=== PATIENT | male | born 1950 | race Caucasian/White ===

== ENCOUNTER 2016-10-05 07:30 | Day surgery (SDC) | payer MEDICARE, OTHER, SELFPAY | END 2016-10-05 08:58 | disposition home or self-care (01) | PROVIDERS: Family Provider Family Medicine; Visit Provider Internal Medicine Gastroenterology | DX: Z12.11 Encounter for screening for malignant neoplasm of colon (principal); D12.2 Benign neoplasm of ascending colon; D12.3 Benign neoplasm of transverse colon; K64.1 Second degree hemorrhoids; Z80.0 Family history of malignant neoplasm of digestive organs | CPT/HCPCS: 45385; 96365; 96366 ==

== ENCOUNTER → 2020-10-08 11:49 | Outpatient (CLI) | payer BC, MEDICARE, SELFPAY ==
--- NOTE | 2020-10-08 | CA_ITS ---
APPROVED REPORT Exam: Pharmacologic Technologist: Lyssa Lewis Ht: 5 ft 10 in Wt: 200 lbs BSA: 2.09 m2 HR: 50 bpm BP: 169/88 mmHg Indications: CP, SOB Medical History Medications: Nadolol,,,,, Allergies: NKA Stress Test Details Test: LEXISCAN HR Resting HR: 49 bpm Max Heart Rate (APMHR): 150.665552 bpm Max HR Achieved: 77 bpm Target HR (85% APMHR): 127.823179 bpm % of APMHR: 51.33 Recovery HR: 67 bpm BP Resting BP: 169/88 mmHg Max BP: 169/88 mmHg Recovery BP: 156.0/91.0 mmHg ECG Resting ECG: NSR, NS T wave abns Clinical Exercise duration: 04:00 min Highest Stage Achieved: Exercise capacity: 1.0 METs Stress ECG Conclusion Switched from exercise to Lexiscan due to exercise tolerance. Very brief chest discomfort, SOA, malaise, and stomach discomfort at peak infusion that resolved during recovery. No arhhythmia or ectopy. No significant ST changes. Unremarkable Lexiscan stress. Images reported separately. High BP. Test Summary REST 01:51 . . 49 . 169/ 88 . . Stage 1 01:00 . . 66 . . . . Stage 2 01:00 . . 74 . 145/ 85 . . Stage 3 01:00 . . 66 . 160/ 84 . . Stage 4 01:00 . . 63 . . . Stop exercise at 04:00 RECOVERY 01:00 . . 75 . 156/ 91 . . RECOVERY 02:00 . . 67 . 152/ 89 . . RECOVERY 03:00 . . 62 . 162/ 86 . . RECOVERY 03:16 . . 70 . 162/ 86 . . Electronically signed by : Ahmet Jorge, 10/08/2020 17:58:25
--- NOTE | 2020-10-08 11:55 | NM_ITS ---
APPROVED REPORT Exam: Nuclear Stress Test Indication: chest pain..short of breath Patient Location: Outpatient Stress Tech: Lyssa Lewis [place] Tech:Gloria Dorado, LIANET, RT (R)(N) Ht: 5 ft 10 in Wt: 200 lbs HR: 50 bpm BP: 169/88 mmHg BSA: 2.09 m2 BMI: 28.6 History: chest pain..short of breath Procedure: Patient received a 0.4 mg of intravenous Lexiscan, resting heart rate 50 bpm, resting blood pressure 169/88 mmHg, with Lexiscan maximum heart rate achived was 72 bpm which is Less than 85 % of the maximum predicted heart rate and blood pressure was 145/85 mmHg. Electrocardiogram Resting electrocardiogram showed sinus rhythm, with Lexiscan there is less than 1.[address] segment depression noted from the baseline EKG. The EKG portion of the Lexiscan is nondiagnostic. Cardiac Stress and Resting SPECT Images: Cardiac Stress and Resting SPECT images were obtained using technetium 99m Myoview 32.1 mCi stress and 10.17 mCi at rest. Gated SPECT for analysis of segmental wall motion and calculation of the ejection fraction also done, prone images were also obtained. Cardiac stress and resting SPECT images show uniform myocardial activity without segmental perfusion abnormality, computer derived ejection fraction is 52% with no regional wall motion abnormality, right ventricle is normal size and contractility. Conclusion: 1. The EKG portion of the Lexiscan is nondiagnostic. 2. No scintigraphic evidence of reversible ischemia seen, computer derived ejection fraction is 52% with no regional wall motion abnormality, right ventricle is normal size and contractility. 3. Normal Lexiscan Myoview study. Electronically signed by : Ahmet Jorge, 10/08/2020 18:16:48
--- NOTE | 2020-10-08 13:30 | HMH.ITSHM ---
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 []NADOLOL PREVAGAN
== END ==
PROVIDERS: PCP Family Medicine; Visit Provider Family Medicine
DX: R06.00 Dyspnea, unspecified (principal); R07.89 Other chest pain
CPT/HCPCS: 78452; 93017; A9502; J2785

== ENCOUNTER → 2020-10-29 11:05 | Outpatient (CLI) | payer BC, MEDICARE, SELFPAY ==
--- NOTE | 2020-10-29 11:12 | XR_ITS ---
PROCEDURE: XR CHEST 2V CLINICAL HISTORY: R07.2,R53.83 COMPARISON: No exams were available for comparison FINDINGS: The cardiomediastinal silhouette and pulmonary vascularity are within normal limits. The lungs are clear without infiltrates, suspicious nodules, or pleural effusions. Degenerative changes of the visualized thoracic spine are noted. IMPRESSION: No acute findings. Dictated by: Mary Maloney 10/29/2020 12:34 Mary Maloney in [facility] 10/29/2020 12:34
--- NOTE | 2020-10-29 11:28 | ECG_ITS ---
APPROVED REPORT Exam: Resting ECG HR:49 bpm ECG Measurements Heart Rate 49 AXES RI 162 P 29 QRSd 84 QRS -25 QT 428 T -8 QTc 386 Conclusion Marked sinus bradycardia Moderate voltage criteria for LVH, may be normal variant Nonspecific T wave abnormality Abnormal ECG Electronically signed by : Johnathan Ortega, 10/31/2020 14:31:10
[2020-10-29 12:23] LABS: Basophils # 0.1 K/mm3 (0-0.2); Eosinophils # 0.5 K/mm3 (0.0-0.4); Eosinophils % 5.8 % (0.1-12.0); Hematocrit 47.3 % (42.0-52.0); Hemoglobin 16.9 g/dL (14.1-18.0); Lymphocytes # 1.6 K/mm3 (0.7-4.5); Lymphocytes % 17.4 % (10-50); Mean Corpuscular HGB Conc 35.6 g/dL (31.8-35.4); Mean Corpuscular Hemoglobin 30.3 pg (27.0-31.2); Monocytes # 0.6 K/mm3 (0.1-1.0); Monocytes % 6.4 % (1.7-9.3); Neutrophils # 6.3 K/mm3 (1.8-7.8); Neutrophils % 69.5 % (37.0-80.0); Platelet Count 249 K/mm3 (142-424); Red Blood Count 5.56 M/mm3 (4.60-6.20); Red Cell Distribution Width 13.5 % (11.5-17.5); White Blood Count 9.1 K/mm3 (4.8-10.8)
[2020-10-29 13:15] LABS: 25-OH Vitamin D, Total 33.1 ng/mL (30-100)
[2020-10-29 13:18] LABS: C-Reactive Protein 1.6 mg/L (0-4)
[2020-10-29 13:45] LABS: Thyroid Stimulating Hormone 2.02 uIU/mL (0.465-4.68)
== END ==
PROVIDERS: PCP Family Medicine; Visit Provider Family Medicine
DX: R07.2 Precordial pain (principal); R53.83 Other fatigue
CPT/HCPCS: 36415; 71046; 82306; 84443; 85025; 86140; 93005

== ENCOUNTER → 2020-11-13 10:03 | Outpatient (CLI) | payer BC, MEDICARE, SELFPAY ==
[2020-11-13 10:34] LABS: Basophils # 0.1 K/mm3 (0-0.2); Eosinophils # 0.9 K/mm3 (0.0-0.4); Eosinophils % 10.4 % (0.1-12.0); Hematocrit 45.2 % (42.0-52.0); Hemoglobin 15.8 g/dL (14.1-18.0); Lymphocytes # 1.8 K/mm3 (0.7-4.5); Lymphocytes % 21.2 % (10-50); Mean Corpuscular Hemoglobin 30.2 pg (27.0-31.2); Mean Corpuscular Volume 86.2 fl (80-94); Mean Platelet Volume 7.7 fl (7.4-10.4); Monocytes # 0.7 K/mm3 (0.1-1.0); Monocytes % 8.5 % (1.7-9.3); Neutrophils # 5.1 K/mm3 (1.8-7.8); Neutrophils % 58.9 % (37.0-80.0); Platelet Count 251 K/mm3 (142-424); Red Blood Count 5.24 M/mm3 (4.60-6.20); Red Cell Distribution Width 13.4 % (11.5-17.5); White Blood Count 8.7 K/mm3 (4.8-10.8)
[2020-11-13 11:12] LABS: Anion Gap 12.2 mEq/L (5-15); Blood Urea Nitrogen 14 mg/dl (9-20); Calcium 8.7 mg/dl (8.4-10.2); Carbon Dioxide 29 mmol/L (22.0-30.0); Chloride 104 mmol/L (98-107); Estimated Glomerular Filt Rate 96 ml/min (>60); GFR (African American) 116 ML/MIN (>60); Glucose 91 mg/dl (74-100); Potassium 4.2 mmoL/L (3.5-5.1); Sodium 141 mmol/L (136-145)
== END ==
PROVIDERS: Visit Provider Internal Medicine Cardiovascular Disease
DX: Z01.812 Encounter for preprocedural laboratory examination (principal); Z20.822 Contact with and (suspected) exposure to COVID-19; R07.9 Chest pain, unspecified; R06.00 Dyspnea, unspecified; R00.1 Bradycardia, unspecified; R94.31 Abnormal electrocardiogram [ECG] [EKG]
CPT/HCPCS: 36415; 80048; 85025; U0003

== ENCOUNTER 2020-11-15 09:19 | Day surgery (SDC) | payer BC, MEDICARE, SELFPAY ==
[2020-11-15] VITALS (12 sets, daily range): BP systolic 110–153; BP diastolic 53–84; PULSE 44–59; RESP 13–20; TEMP 36.6; O2SAT 18–98; BMI 28.4
--- NOTE | 2020-11-15 07:15 | IR_ITS ---
APPROVED REPORT Patient Location: Outpatient Physicist Acoustics: JOURDAN Willis RT (R) PROCEDURES Left heart catheterization Left ventriculogram Selective coronary angiogram INDICATION Typical angina pectoris Informed consent was obtained prior to the procedure. COMPLICATIONS NONE Estimated Blood Loss: LESS THAN 10 ML TECHNIQUE One percent lidocaine used to anesthetize the right anterior aspect of the wrist. The right radial artery was accessed via the Seldinger technique. A 6 Georgian sheath was placed in the right radial artery. 2.5 mg of verapamil, 800 mcg of nitroglycerin, 1mg Lidocaine and 5000 U Heparin were given through the arterial sheath. The trap catheter was also used to perform left heart catheterization, left ventriculogram and selective coronary angiogram. At the end of the procedure the sheath was removed good hemostasis was achieved using Traclet band, patient was transferred to the postop holding area in stable condition. ANGIOGRAPHIC RESULTS The left main artery Has a distal concentric 70 to 80% stenosis The left anterior descending artery Has an ostial 70 to 80% stenosis with diffuse mid vessel 40 to 50% stenoses The circumflex artery Is dominant and has an ostial 80% stenosis. The remaining vessel is large-caliber with mild luminal irregularities The right coronary artery Is probably codominant and has mid vessel 40 to 50% stenoses with distal 10% stenoses The LORA ventriculogram reveals 65% The left ventricular end-diastolic pressure 10 mmHg IMPRESSION Severe coronary artery disease as described above Normal ejection fraction Normal left ventricular and SI pressure PLAN 1. Patient will be referred for coronary bypass surgery in [place] Electronically signed by : Dallas Daniels MD 11/15/2020 12:16:47
== END 2020-11-15 14:47 | disposition home or self-care (01) ==
LOC: CATHLAB 09:21
PROVIDERS: PCP Family Medicine; Visit Provider Internal Medicine
DX: R07.9 Chest pain, unspecified (principal); R94.31 Abnormal electrocardiogram [ECG] [EKG]; I25.118 Atherosclerotic heart disease of native coronary artery with other forms of angina pectoris; G43.909 Migraine, unspecified, not intractable, without status migrainosus; Z79.899 Other long term (current) drug therapy
CPT/HCPCS: 93458; 99152; C1725; C1769; J1644; Q9967

== ENCOUNTER 2020-11-23 20:08 | Emergency (ER) | payer BC, MEDICARE, SELFPAY ==
--- NOTE | 2020-11-23 20:07 | ECG_ITS ---
APPROVED REPORT Exam: Resting ECG HR:52 bpm ECG Measurements Heart Rate 52 AXES MD 152 P 52 QRSd 82 QRS -28 QT 420 T 26 QTc 390 Conclusion Sinus bradycardia with sinus arrhythmia Otherwise normal ECG Electronically signed by : Johnathan Ortega MD 11/24/2020 08:59:10
[2020-11-23 20:09] VITALS: BP 164/81; PULSE 54; RESP 18; TEMP 36.9; O2SAT 98; BMI 29.2
[2020-11-23 20:10] VITALS: BMI 29.2
--- NOTE | 2020-11-23 20:10 | XR_ITS ---
PROCEDURE INFORMATION: Exam: XR Chest Exam date and time: 11/23/2020 8:10 PM Age: 70 years old Clinical indication: Chest pressure; Patient HX: SOB chest pain; Additional info: Shortness of air chestpain TECHNIQUE: Imaging protocol: XR of the chest. Views: 2 views. COMPARISON: CR XR CHEST 2V 10/29/2020 11:16 AM FINDINGS: Lungs: Unremarkable. No consolidation. Pleural spaces: Unremarkable. No pleural effusion. No pneumothorax. Heart/Mediastinum: Unremarkable. No cardiomegaly. Bones/joints: Unremarkable. IMPRESSION: No acute findings.
[2020-11-23 20:28] LABS: Basophils # 0.1 K/mm3 (0-0.2); Basophils % 0.8 % (0.1-2.0); Eosinophils # 0.5 K/mm3 (0.0-0.4); Eosinophils % 5.9 % (0.1-12.0); Hematocrit 44.7 % (42.0-52.0); Hemoglobin 15.2 g/dL (14.1-18.0); Lymphocytes # 1.9 K/mm3 (0.7-4.5); Mean Corpuscular HGB Conc 34.1 g/dL (31.8-35.4); Mean Corpuscular Hemoglobin 29.1 pg (27.0-31.2); Mean Corpuscular Volume 85.2 fl (80-94); Mean Platelet Volume 8.1 fl (7.4-10.4); Monocytes # 0.6 K/mm3 (0.1-1.0); Monocytes % 8.3 % (1.7-9.3); Neutrophils # 4.6 K/mm3 (1.8-7.8); Platelet Count 272 K/mm3 (142-424); Red Blood Count 5.24 M/mm3 (4.60-6.20); Red Cell Distribution Width 13.4 % (11.5-17.5); White Blood Count 7.7 K/mm3 (4.8-10.8)
[2020-11-23 20:40] LABS: Alanine Aminotransferase 38 U/L (12-78); Albumin Level 4.1 g/dl (3.5-5.0); Alkaline Phosphatase 75 U/L (38-126); Anion Gap 12.3 mEq/L (5-15); Aspartate Amino Transferase 43 U/L (17-59); Bilirubin,Direct 0.4 mg/dl (0.0-0.4); Bilirubin,Indirect 0.5 mg/dL (0.0-0.9); Bilirubin,Total 0.9 mg/dl (0.2-1.3); Bilirubin,Unconjugated 0.5 mg/dL (0.0-1.1); Blood Urea Nitrogen 14 mg/dl (9-20); Calcium 8.6 mg/dl (8.4-10.2); Carbon Dioxide 30 mmol/L (22.0-30.0); Chloride 104 mmol/L (98-107); Creatinine Clearance Estimated 87 mL/min (50-200); Estimated Glomerular Filt Rate 83 ml/min (>60); GFR (African American) 101 ML/MIN (>60); Glucose 97 mg/dl (74-100); Potassium 4.3 mmoL/L (3.5-5.1); Sodium 142 mmol/L (136-145); Total Protein,Serum 6.9 g/dl (6.3-8.2)
[2020-11-23 20:53] LABS: NT Pro Brain Natriuretic Pep. 95.3 pg/mL (0-125)
[2020-11-23 20:57] LABS: T4 (Thyroxine) 8.4 ug/dl (5.53-11.0)
[2020-11-23 20:58] LABS: Troponin I < 0.01 ng/ml (0.00-0.034)
[2020-11-23 21:00] VITALS: BP 125/64; PULSE 52; RESP 16; O2SAT 97
--- NOTE | 2020-11-23 21:00 | HMH.EDCP ---
ED Disposition Clinical Impression: Unstable angina Coronary artery disease Qualifiers: Coronary Disease-Associated Artery/Lesion type: hopi artery Un[place] vs. transplanted heart: hopi heart Associated angina: with unstable angina Qualified Code(s): I25.110 - Atherosclerotic heart disease of hopi coronary artery with unstable angina pectoris Disposition: Admitted as Observation Condition on Discharge: Good - Critical Care Critical Care Time: No Attestation: On 11/23/20, the high probability of a clinically significant, sudden or life threatening deterioration of the following system(s) required my full and direct attention, intervention and personal management. The time I documented below is in addition to time spent performing reported procedures but includes the following listed in this critical care notation. Medical Decision Making - Medical Records Medical records reviewed: Yes: I reviewed the patient's medical records. - Mac Inquiry Pt receiving controlled substance: No Vital Signs: 11/23/20 20:09 Temperature 98.4 F Temperature Source Oral Pulse Rate [Right Radial] 54 L Respiratory Rate 18 Blood Pressure [Right Arm] 164/81 H Blood Pressure Mean [Right Arm] 108 Blood Pressure Source [Right Arm] Automatic Cuff Blood Pressure Position [Right Arm] Sitting 02 Sat by Pulse Oximetry 98 Oxygen Delivery Method Room Air - Lab Data Lab results reviewed: Yes: I reviewed the patient's lab results. Lab Results 11/23/20 20:22: WBC 7.7, RBC 5.24, Hgb 15.2, Hct 44.7, MCV 85.2, MCH 29.1, MCHC 34.1, RDW 13.4, Plt Count 272, MPV 8.1, Neut % (Auto) 60.0, Lymph % (Auto) 25.0, [place] % (Auto) 8.3, Eos % (Auto) 5.9, Baso % (Auto) 0.8, Neut # (Auto) 4.6, Lymph # (Auto) 1.9, [place] # (Auto) 0.6, Eos # (Auto) 0.5 H, Baso # (Auto) 0.1 11/23/20 20:22: Sodium 142, Potassium 4.3, Chloride 104, Carbon Dioxide 30, Anion Gap 12.3, BUN 14, Creatinine 0.90, Estimated Creat Clear 87, Estimated GFR 83, Est GFR ( Amer) 101, Glucose 97, Calcium 8.6, Total Bilirubin 0.9, Direct Bilirubin 0.4, Conjugated Bilirubin 0.0, Indirect Bilirubin 0.5, Unconjugated Bilirubin 0.5, AST 43, ALT 38, Alkaline Phosphatase 75, Troponin I < 0.01, NT-Pro-B Natriuret Pep 95.3, Total Protein 6.9, Albumin 4.1, TSH 2.25, Thyroxine (T4) 8.4 Result diagrams: 11/23/20 20:22 11/23/20 20:22 Orders (Tests/Meds): ED MEDICATIONS Generic Name Dose Route Start Last Admin Trade Name Freq PRN Reason Stop Dose Admin Sodium Chloride 1,000 mls @ 999 mls/hr 11/23/20 20:45 11/23/20 20:25 Sod Chlor 0.9% 1000ml Bag IV 11/23/20 21:45 999 mls/hr .Q1H1M ENOC Administration Discontinued Medications Generic Name Dose Route Start Last Admin Trade Name Freq PRN Reason Stop Dose Admin Aspirin 324 mg 11/23/20 20:38 11/23/20 20:10 Aspirin 81mg Chewable Tablet PO 11/23/20 20:39 243 mg ONCE ONE Administration Nitroglycerin 1 gm 11/23/20 20:38 11/23/20 20:10 Nitroglycerin 1 Gm Ointment TD 11/23/20 20:39 1 gm ONCE ONE Administration ORDERS Category Date Time Status Rapid PCR Covid and Flu A/B Stat Lab 11/23/20 21:46 Received Troponin I Q3H Lab 11/23/20 23:15 Ordered Troponin I Q3H Lab 11/24/20 02:15 Ordered - Radiology Data #1 Image(s): Chest Image Reviewed: Yes I reviewed the patient's radiology image Preliminary Findings: Abnormal - ECG Data Tracing #1 Normal Sinus Rhythm: Yes Ischemic changes: non-specific ST-T wave changes - Physician Consults Physician Consulted: ivy Reason -: Admission Additional Consult: edgar Reason -: Pt condition Medical Decision Narrative: will admit for unstable angina and will try to transfer pt in am Chest Pain HPI - General Chief Complaint: Chest Pain Stated Complaint: cp Time Seen by Provider: 11/23/20 20:15 Mode of Arrival: Ambulatory Source of Information: Patient, Relative, Medical Record Limitations: No Limitations Description of Symptom
[2020-11-23 21:11] LABS: Thyroid Stimulating Hormone 2.25 uIU/mL (0.465-4.68)
--- NOTE | 2020-11-23 21:24 | PC.NURSE ---
Patricia Daniels at this time.
[2020-11-23 21:30] VITALS: BP 108/57; PULSE 56; O2SAT 95
[2020-11-23 21:56] LABS: Coronavirus 19, PCR Not Detected (NotDetected); Influenza A, PCR Not Detected (NotDetected); Influenza B, PCR Not Detected (NotDetected)
[2020-11-23 22:00] VITALS: BP 112/61; PULSE 60; O2SAT 95
--- NOTE | 2020-11-23 22:38 | PC.NURSE ---
tx center called and informed of tx to [facility]. Pt will be admitted to [facility] to 8th floor, [place] [address], [address].
--- NOTE | 2020-11-23 22:49 | PC.NURSE ---
Attempted to call report and says RN is with a pt and they will call back
--- NOTE | 2020-11-23 23:04 | PC.NURSE ---
Report called to LILIANA Rodriguez at at this time
[2020-11-23 23:05] VITALS: BP 119/72; PULSE 54; RESP 16; TEMP 36.7; O2SAT 97
== END 2020-11-23 23:08 | disposition short-term general hospital (02) ==
LOC: ER 20:23 → 2ND 21:52 → ER 22:45
PROVIDERS: Emergency Provider Emergency Medicine; PCP Family Medicine
DX: I20.0 Unstable angina (principal); I25.10 Atherosclerotic heart disease of native coronary artery without angina pectoris; I10 Essential (primary) hypertension; E78.5 Hyperlipidemia, unspecified; Z11.52 Encounter for screening for COVID-19
CPT/HCPCS: 71046; 80048; 80076; 83880; 84436; 84443; 84484; 85025; 93005; 96365; 99284; U0003

== ENCOUNTER 2021-01-29 15:25 | Outpatient (RCR) | payer BC, MEDICARE, SELFPAY | END 2021-04-02 15:30 | disposition home or self-care (01) | LOC: PT 15:25 | PROVIDERS: Visit Provider Thoracic Surgery (Cardiothoracic Vascular Surgery) | DX: I25.110 Atherosclerotic heart disease of native coronary artery with unstable angina pectoris (principal); Z95.1 Presence of aortocoronary bypass graft | CPT/HCPCS: 93798 ==

== ENCOUNTER → 2021-02-24 13:37 | Outpatient (CLI) | payer BC, MEDICARE, SELFPAY ==
--- NOTE | 2021-02-24 13:38 | CA_ITS ---
APPROVED REPORT EXAM: Comprehensive 2D, Doppler, and color-flow Echocardiogram Pharmacology Professor: RAY Matthew, RVS Ht: 5 ft 10 in Wt: 197lbs BSA: 2.07 HR: 48 bpm BP: 130/46 mmHg Rhythm: Bradycardia Indications: CAD 2moths post CABG x2, Bradycardis, Dizziness 2D Dimensions Left Atrium 3.63 cm M: 3.0 - 4.0 LA Volume 54.30 mL LVOT 2.09 cm (M/F) 1.5-2.5 LA Volume Index 26.23 mL/m2 (M/F) 16-34 M-Mode Dimensions RVDd 4.41 cm (0.9-2.6) LA Diam 4.24 cm (1.9-4.0) LVDd 5.65 cm (3.5-5.7) Ao Diam 3.27 cm (2.0-3.7) LVDs 3.84 cm (3.5-5.7) IVSd 1.00 cm (0.6-1.1) PWd 0.88 cm (0.6-1.1) EF (Teich) 57.10% EPSs 1.29 cm FS 30.30% EDV (Teich) 148.00 mL TAPSE 1.70 (<1.7) ESV (Teich) 63.50 mL LV Diastology E Decel Time 190.00 (160-240 msec) E/A Ratio 1.80 MED E' 7.00 (< 7 cm/sec) MED A' 8.90 cm/s E'/MED E' Ratio 14.30 (>14) LAT E' 9.50 (<10 cm/sec) LAT A' 11.20 cm/s E/LAT E' Ratio 10.54 (>14) Aortic Valve LVOT Max 101.00 (70-110 cm/s) LVOT VTI 23.46 cm AoV Peak Avtar. 159.00 (50-130 cm/s) AO Peak GR. 10.10 mmHg AO Mean GR. 5.10 (<5 mmHg) AO VTI 36.95 (18-25 cm) RAKESH (VTI) 2.18 (2.5-4.5 cm2) Mitral Valve MV A Velocity 56.00 (40-130 cm/s) E/A Ratio 1.80 MV Decel. Time 190.00 (160-240 ms) Pulmonary Valve PV Peak Velocity 98.00 (50-150 cm/s) Tricuspid Valve TR P. Velocity 223.00 cm/s RAP Estimate 10.00 mmHg RVSP 29.90 mmHg Left Ventricle Left atrium is mildly enlarged, left ventricle is normal size, mild concentric left ventricular hypertrophy, diastolic parameters are inconclusive. Right Ventricle Right atrium right ventricle mildly enlarged with normal contractility. Aortic Valve Aortic valve is minimally thickened and fibrosed, there is no aortic stenosis or aortic insufficiency. Mitral Valve Mitral valve is grossly normal, there is trace mitral regurgitation. Tricuspid Valve Tricuspid valve grossly normal, there is trace tricuspid regurgitation, tricuspid regurgitation jet velocity is inadequate for calculation of the right ventricular systolic pressure. Pulmonic Valve Pulmonic valve is poorly visualized. Great Vessels Aortic root is normal size. Inferior vena cava is poorly visualized. Pericardium No significant pericardial effusion noted. Conclusion 1. Mild biatrial enlargement, normal left ventricular size, mild concentric left ventricular hypertrophy, visually estimated ejection fraction 55% with no regional wall motion abnormality, diastolic parameters are inconclusive. There is abnormal septal motion. 2. Trace mitral and tricuspid regurgitation. 3. No significant pericardial effusion 4. Inferior vena cava is poorly visualized. Electronically signed by : Ahmet Jorge MD 02/24/2021 20:56:30
== END ==
PROVIDERS: PCP Family Medicine; Visit Provider Nurse Practitioner Family
DX: R06.02 Shortness of breath (principal); R00.1 Bradycardia, unspecified; I20.9 Angina pectoris, unspecified; I10 Essential (primary) hypertension; E78.5 Hyperlipidemia, unspecified; R94.31 Abnormal electrocardiogram [ECG] [EKG]
CPT/HCPCS: 93306

== ENCOUNTER → 2021-05-26 08:20 | Outpatient (CLI) | payer BC, MEDICARE, SELFPAY ==
--- NOTE | 2021-05-26 08:20 | MR_ITS ---
FINAL REPORT CLINICAL HISTORY: hallucinations. SINCE OPEN HEART SURGERY IN NOV 30 BEEN HAVING HALLUCINATIONS.HAS NOT HAD A HALLUCINATION X1WK. DIZZINESS. PRIOR CT 05-30-15 FINDINGS: Multiplanar MR imaging of the brain was performed without contrast. There is no evidence of intracranial hemorrhage or mass. The ventricular size is normal. There is no evidence of shift of the midline structures. No abnormal extra-axial fluid collection is identified. The posterior fossa and brainstem have an unremarkable appearance. No area of abnormal restricted diffusion is identified. Normal major vessel vascular flow voids are seen. There is mild mucosal thickening in the sinuses. IMPRESSION: No acute intracranial process. Reviewed, Interpreted and Dictated by Wild Briones III, MD Transcribed by Ambrocio Leon Authenticated by Wild Briones III, MD on 05/26/2021 11:07:57 AM [facility]
== END ==
PROVIDERS: PCP Family Medicine; Visit Provider Specialist
DX: F02.80 Dementia in other diseases classified elsewhere, unspecified severity, without behavioral disturbance, psychotic disturbance, mood disturbance, and anxiety (principal); G31.83 Neurocognitive disorder with Lewy bodies; G47.52 REM sleep behavior disorder; G93.40 Encephalopathy, unspecified; R44.3 Hallucinations, unspecified
CPT/HCPCS: 70551; 94762; 95816

== ENCOUNTER → 2021-05-29 08:08 | Outpatient (CLI) | payer BC, MEDICARE, SELFPAY ==
[2021-05-29 08:38] LABS: Basophils # 0.1 K/mm3 (0-0.2); Eosinophils # 0.6 K/mm3 (0.0-0.4); Eosinophils % 7.7 % (0.1-12.0); Hematocrit 46.7 % (42.0-52.0); Hemoglobin 15.8 g/dL (14.1-18.0); Lymphocytes # 1.7 K/mm3 (0.7-4.5); Lymphocytes % 23.3 % (10-50); Mean Corpuscular HGB Conc 33.9 g/dL (31.8-35.4); Mean Corpuscular Hemoglobin 29.3 pg (27.0-31.2); Mean Corpuscular Volume 86.6 fl (80-94); Mean Platelet Volume 7.7 fl (7.4-10.4); Monocytes # 0.6 K/mm3 (0.1-1.0); Monocytes % 7.9 % (1.7-9.3); Neutrophils # 4.4 K/mm3 (1.8-7.8); Neutrophils % 60.1 % (37.0-80.0); Platelet Count 270 K/mm3 (142-424); Red Blood Count 5.39 M/mm3 (4.60-6.20); Red Cell Distribution Width 13.1 % (11.5-17.5); White Blood Count 7.3 K/mm3 (4.8-10.8)
[2021-05-29 09:56] LABS: Alanine Aminotransferase 25 U/L (12-78); Albumin Level 4.1 g/dl (3.5-5.0); Albumin/Globulin Ratio 1.8 (1.1-1.8); Alkaline Phosphatase 65 U/L (38-126); Anion Gap 9.5 mEq/L (5-15); Aspartate Amino Transferase 38 U/L (17-59); Bilirubin,Total 0.8 mg/dl (0.2-1.3); Blood Urea Nitrogen 10 mg/dl (9-20); Calcium 8.9 mg/dl (8.4-10.2); Carbon Dioxide 30 mmol/L (22.0-30.0); Chloride 106 mmol/L (98-107); Estimated Glomerular Filt Rate 83 ml/min (>60); GFR (African American) 101 ML/MIN (>60); Globulin 2.3 g/dL (1.3-3.2); Glucose 101 mg/dl (74-100); Potassium 4.5 mmoL/L (3.5-5.1); Sodium 141 mmol/L (136-145); Total Protein,Serum 6.4 g/dl (6.3-8.2)
[2021-05-29 10:13] LABS: Erythrocyte Sedimentation Rate 33 mm/hr (0-20)
[2021-05-29 13:38] LABS: Folate 6.89 ng/mL; Vitamin B12 375 pg/mL (239-931)
[2021-05-30 10:39] LABS: Rapid Plasma Reagin Ab Titer Non Reactive (NonRea<1:1)
[2021-07-13 20:44] LABS: Antinuclear Antibodies (ANA) Negative
== END ==
PROVIDERS: PCP Family Medicine; Visit Provider Specialist
DX: G93.40 Encephalopathy, unspecified (principal); R44.3 Hallucinations, unspecified; R41.3 Other amnesia
CPT/HCPCS: 36415; 80053; 82607; 82746; 85025; 85651; 86038; 86225; 86235; 86592

== ENCOUNTER 2021-12-03 12:25 | Emergency (ER) | payer BC, MEDICARE, SELFPAY ==
[2021-12-03 13:28] VITALS: BP 125/84; PULSE 55; RESP 17; TEMP 37; O2SAT 100; BMI 28.7
--- NOTE | 2021-12-03 13:31 | XR_ITS ---
FINAL REPORT CLINICAL HISTORY: popped when throwing salt block FINDINGS: RIGHT ELBOW Three views of the right elbow were obtained. There is no acute fracture or dislocation. There are mild hypertrophic changes at the medial margin. The soft tissues are unremarkable. IMPRESSION: Mild hypertrophic changes of osteoarthritis. No acute bony abnormality. Reviewed, Interpreted and Dictated by Kwaku Wlaker MD Transcribed by Iliana Lima Authenticated and [facility]
--- NOTE | 2021-12-03 13:31 | XR_ITS ---
FINAL REPORT CLINICAL HISTORY: popped when throwing salt block FINDINGS: RIGHT FOREARM 2 views of the right forearm were obtained. There is no acute fracture or dislocation. The joints are intact. There are no soft tissue abnormalities. IMPRESSION: No acute process. Reviewed, Interpreted and Dictated by Kwaku Walker MD Transcribed by Iliana Lima Authenticated and [facility]
--- NOTE | 2021-12-03 13:37 | PC.NURSE ---
IV established and blood sent to the lab
--- NOTE | 2021-12-03 13:38 | PC.NURSE ---
pt to xr
--- NOTE | 2021-12-03 13:43 | PC.NURSE ---
pt back from xr
[2021-12-03 13:49] LABS: Alanine Aminotransferase 36 U/L (12-78); Albumin Level 4.3 g/dl (3.5-5.0); Albumin/Globulin Ratio 1.4 (1.1-1.8); Alkaline Phosphatase 113 U/L (38-126); Anion Gap 11.2 mEq/L (5-15); Aspartate Amino Transferase 47 U/L (17-59); Bilirubin,Total 0.6 mg/dl (0.2-1.3); Blood Urea Nitrogen 11 mg/dl (9-20); Calcium 9.2 mg/dl (8.4-10.2); Carbon Dioxide 27 mmol/L (22.0-30.0); Chloride 107 mmol/L (98-107); Creatinine Clearance Estimated 87 mL/min (50-200); Estimated Glomerular Filt Rate 95 ml/min (>60); GFR (African American) 115 ML/MIN (>60); Glucose 113 mg/dl (74-100); Potassium 4.2 mmoL/L (3.5-5.1); Sodium 141 mmol/L (136-145); Total Protein,Serum 7.3 g/dl (6.3-8.2)
[2021-12-03 14:04] LABS: Basophils # 0.2 K/mm3 (0-0.2); Basophils % 1.4 % (0.1-2.0); Eosinophils # 0.3 K/mm3 (0.0-0.4); Eosinophils % 2.2 % (0.1-12.0); Hematocrit 49.6 % (42.0-52.0); Hemoglobin 16.3 g/dL (14.1-18.0); Lymphocytes # 1.1 K/mm3 (0.7-4.5); Lymphocytes % 8.9 % (10-50); Mean Corpuscular HGB Conc 32.9 g/dL (31.8-35.4); Mean Corpuscular Hemoglobin 29.7 pg (27.0-31.2); Mean Corpuscular Volume 90.3 fl (80-94); Mean Platelet Volume 8.2 fl (7.4-10.4); Monocytes # 0.5 K/mm3 (0.1-1.0); Monocytes % 4.5 % (1.7-9.3); Neutrophils # 10.1 K/mm3 (1.8-7.8); Neutrophils % 83.1 % (37.0-80.0); Platelet Count 316 K/mm3 (142-424); Red Blood Count 5.49 M/mm3 (4.60-6.20); Red Cell Distribution Width 13.3 % (11.5-17.5); White Blood Count 12.2 K/mm3 (4.8-10.8)
--- NOTE | 2021-12-03 17:10 | HMH.EDGENADL ---
Discharge Plan Disposition Patient Disposition: Home, Self-Care Condition: Good Chief Complaint: Extremity Injury, Upper Prescriptions Prescriptions: New hydrocodone-acetaminophen 2.5-325 mg tablet 1 tab PO Q6H PRN (Reason: pain) Qty: 10 0RF hydrocodone-acetaminophen 5-325 mg tablet 1 tab PO Q6H PRN (Reason: Pain) Qty: 10 0RF No Action Centrum Adult 50 Fresh-Fruity 120 mcg tablet,chewable 1 tab PO DAILY rosuvastatin 20 mg tablet 20 mg PO DAILY Qty: 90 3RF aspirin 81 MG tablet,delayed release (DR/EC) 81 mg PO DAILY Referrals Referrals: Hunter Pineda JR, MD [Physician] - Enter time for follow up Martell Thomas MD [Primary Care Provider] - Enter time for follow up Activity Restrictions/Add. Instructions Additional Instructions/Restrictions: Jason wrap and sling. Ice 20 minutes 4 times a day. [place] as needed for pain. Follow-up with orthopedics, Dr. Pineda, call tomorrow to make appointment. You should be seen within 1 week. Additional instructions for CONTROLLED SUBSTANCES: You have been prescribed a medication that is a controlled substance. Controlled substances include pain medications known as opiates and sedative nerve medications known as benzodiazepines. Tramadol, fioricet, and gabapentin are also controlled substances. Some common opiates include: Codeine (such as Tylenol #3) Hydrocodone (Vicodin, Lortab, Lorcet, [place]) Oxycodone (Percocet, Percodan, Oxycodone, Oxy IR) Some common benzodiazepines include: Diazepam (Valium) Lorazepam (Ativan) Alprazolam (Xanax) Clonazepam (Klonopin) Oxazepam (Serax) All of these controlled substances are highly addictive and frequently abused. Misuse can and frequently does lead to addiction as well as overdose and . Medication should be stored in a locked cabinet or other secure storage unit. Do not store the medication in a motor vehicle. Short term supplies, 3 days or less, are prescribed because of the highly addictive nature of the medication. Any of the controlled substance medication NOT taken should be disposed of properly and NOT SAVED. The recommended method of disposing of unused medications is: Place the medicines in a sealable plastic bag. If the medicine is a solid, crush it or add water to dissolve it. Add something undesirable (cat litter, coffee grounds, etc.) Dispose of sealed bag in household trash Do not flush or pour unused medicines down a sink or drain. Controlled substances should not be shared, given away or sold. Because of the addictive nature and frequent abuse, these medications are sometimes stolen. These medications should be kept in a safe place where they cannot be stolen. Do not keep them in your car or purse. Lost or stolen prescriptions for controlled substances WILL NOT BE REFILLED in this emergency department, regardless of whether a police report was filed. Clinical Impressions Clinical Impression: Injury of elbow, right Discharge ED Provider: Manolo Cyr General Adult HPI General Chief complaint: Extremity Injury, Upper Stated complaint: rt arm injury 12/03/21 Time Seen by Provider: 12/03/21 17:10 Mode of Arrival: Ambulatory Limitations: No Limitations Description of Symptoms (Recalled from ER Triage Doc. by RN): Pt c/o pain in rt elbow/forearm after tossing a salt block over the fence to his horses. Pt states that he heard a pop . Advises that he become diaphoretic and blacked out as soon as the pop ocurred. History of Present Illness HPI narrative: Patient states that he was tossing a 50 pound salt block over a fence this morning at about 1030 or 11 AM. He felt a pop in the antecubital fossa towards the medial side with sudden severe pain causing him to sweat and blacked out. Since then he has taken Tylenol with some mild relief. He still has severe pain in that same area worsen whenever he pronates and supinates his forearm. No numbness of the
--- NOTE | 2021-12-03 17:38 | PC.NURSE ---
ER doctor advised that pt. needed an yazan wrap for elbow and a shoulder immobilizer for the injured right arm. wrapped yazan bandage on elbow and applied the shoulder immobilizer.
[2021-12-03 17:48] VITALS: BP 137/70; PULSE 55; RESP 16; TEMP 37; O2SAT 98
== END 2021-12-03 17:48 | disposition home or self-care (01) ==
PROVIDERS: Emergency Provider Emergency Medicine; PCP Family Medicine
DX: S49.91XA Unspecified injury of right shoulder and upper arm, initial encounter (principal); X50.1XXA Overexertion from prolonged static or awkward postures, initial encounter
CPT/HCPCS: 73080; 73090; 80053; 85025; 99283

== ENCOUNTER → 2021-12-11 11:23 | Outpatient (CLI) | payer BC, MEDICARE, SELFPAY ==
--- NOTE | 2021-12-11 14:19 | MR_ITS ---
FINAL REPORT CLINICAL HISTORY: bicep tear BICEP TEAR PATIENT COULDNT FINISH SCAN DUE TO BEING CLAUSTROPHOBIC REQUESTED TO QUIT SCAN TOLD PATIENT TO CALL DOCTORS OFFICE AND GET RESCHDULED BUT IS REQUESTING WHAT IMAGES WE DO HAVE LIMITED STUDY DUE TO PATIENT BEING CLAUSTROPHOBIC FINDINGS: Multiplanar MR imaging of the right upper arm was obtained with sagittal T1 and T2 weighted images only. Exam is very limited. Patient was unable to tolerate additional imaging. No fracture or bone marrow edema is identified. There is a small cyst or enchondroma in the humeral head. There is a focal full-thickness rotator cuff tear. There is edema or hemorrhage in the antecubital fossa surrounding the distal biceps tendon. The distal biceps tendon cannot be accurately evaluated but there is probably a partial tear. There is a small elbow joint effusion. The long head of the biceps tendon is not well seen of uncertain significance. IMPRESSION: Very limited exam. Focal full-thickness rotator cuff tear. Dedicated shoulder MRI may be helpful. Probable partial tear of the distal biceps tendon. Dedicated elbow MRI may be helpful. Long head of the biceps tendon is not well seen of uncertain significance. Reviewed, Interpreted and Dictated by Wild Briones III, MD Transcribed by Tanisha Hurley Authenticated and [facility]
== END ==
PROVIDERS: PCP Family Medicine; Visit Provider Orthopaedic Surgery
DX: S46.211A Strain of muscle, fascia and tendon of other parts of biceps, right arm, initial encounter (principal)
CPT/HCPCS: 73218

== ENCOUNTER → 2022-02-03 11:02 | Outpatient (CLI) | payer BC, MEDICARE, SELFPAY ==
[2022-02-03 11:26] LABS: Basophils # 0.1 K/mm3 (0-0.2); Basophils % 0.8 % (0.1-2.0); Eosinophils # 0.3 K/mm3 (0.0-0.4); Eosinophils % 4.2 % (0.1-12.0); Hematocrit 46.3 % (42.0-52.0); Hemoglobin 15.7 g/dL (14.1-18.0); Lymphocytes # 1.4 K/mm3 (0.7-4.5); Lymphocytes % 17.4 % (10-50); Mean Corpuscular HGB Conc 33.8 g/dL (31.8-35.4); Mean Corpuscular Hemoglobin 30.4 pg (27.0-31.2); Mean Corpuscular Volume 89.7 fl (80-94); Mean Platelet Volume 8.2 fl (7.4-10.4); Monocytes # 0.5 K/mm3 (0.1-1.0); Monocytes % 6.3 % (1.7-9.3); Neutrophils # 5.7 K/mm3 (1.8-7.8); Neutrophils % 71.3 % (37.0-80.0); Platelet Count 269 K/mm3 (142-424); Red Blood Count 5.16 M/mm3 (4.60-6.20); Red Cell Distribution Width 13.2 % (11.5-17.5)
[2022-02-03 12:04] LABS: Chloride 105 mmol/L (98-107); Potassium 4.3 mmoL/L (3.5-5.1); Sodium 141 mmol/L (136-145)
[2022-02-03 12:06] LABS: Blood Urea Nitrogen 13 mg/dl (9-20); Estimated Glomerular Filt Rate 83 ml/min (>60); GFR (African American) 101 ML/MIN (>60)
[2022-02-03 12:07] LABS: Alanine Aminotransferase 29 U/L (12-78); Albumin Level 4.1 g/dl (3.5-5.0); Alkaline Phosphatase 89 U/L (38-126); Anion Gap 12.3 mEq/L (5-15); Aspartate Amino Transferase 42 U/L (17-59); Bilirubin,Indirect 0.6 mg/dL (0.0-0.9); Bilirubin,Total 0.6 mg/dl (0.2-1.3); Bilirubin,Unconjugated 0.6 mg/dL (0.0-1.1); Calcium 8.7 mg/dl (8.4-10.2); Carbon Dioxide 28 mmol/L (22.0-30.0); Cholesterol 135 mg/dl (140-200); Glucose 98 mg/dl (74-100); Total Protein,Serum 6.5 g/dl (6.3-8.2); Triglycerides 108 mg/dl (30-150); VLDL Cholesterol 22 mg/dL (0-40)
[2022-02-03 12:08] LABS: Chol/HDL Ratio 4.5 (1-3.5); HDL Cholesterol 30 mg/dl (40-60)
[2022-02-03 12:19] LABS: Direct LDL Cholesterol 77.04 mg/dL (100-129)
[2022-02-03 12:40] LABS: Thyroid Stimulating Hormone 1.25 uIU/mL (0.465-4.68)
== END ==
PROVIDERS: PCP Family Medicine; Visit Provider Physician Assistant
DX: R42 Dizziness and giddiness (principal); R44.3 Hallucinations, unspecified; I25.118 Atherosclerotic heart disease of native coronary artery with other forms of angina pectoris; I10 Essential (primary) hypertension; E78.2 Mixed hyperlipidemia; R94.31 Abnormal electrocardiogram [ECG] [EKG]; Z95.1 Presence of aortocoronary bypass graft
CPT/HCPCS: 36415; 80048; 80061; 80076; 83735; 84439; 84443; 85025

== ENCOUNTER → 2022-08-04 10:40 | Outpatient (CLI) | payer BC, MEDICARE, SELFPAY ==
--- NOTE | 2022-08-04 10:44 | XR_ITS ---
FINAL REPORT CLINICAL HISTORY: dyspnea COMPARISON: 11/23/2020 FINDINGS: 2 views of the chest were obtained. The patient is status post median sternotomy. The heart size is normal. Mild bibasilar opacities are favored to represent atelectasis over pneumonia. Moderate degenerative changes are seen in the thoracic spine. IMPRESSION: Mild bibasilar opacities, favor atelectasis over pneumonia. Reviewed, Interpreted and Dictated by Wild Briones III, MD Transcribed by Shavon Morfin Authenticated and [facility]
== END ==
PROVIDERS: PCP Family Medicine; Visit Provider Nurse Practitioner Family
DX: R06.02 Shortness of breath (principal); R07.9 Chest pain, unspecified; R00.1 Bradycardia, unspecified; I25.118 Atherosclerotic heart disease of native coronary artery with other forms of angina pectoris; I10 Essential (primary) hypertension; E78.2 Mixed hyperlipidemia; Z95.1 Presence of aortocoronary bypass graft
CPT/HCPCS: 71046

== ENCOUNTER → 2022-08-19 10:52 | Outpatient (CLI) | payer BC, MEDICARE, SELFPAY | PROVIDERS: PCP Family Medicine; Visit Provider Nurse Practitioner Family | DX: R06.02 Shortness of breath (principal); R07.9 Chest pain, unspecified; R00.1 Bradycardia, unspecified; I25.118 Atherosclerotic heart disease of native coronary artery with other forms of angina pectoris; I10 Essential (primary) hypertension; E78.2 Mixed hyperlipidemia; Z95.1 Presence of aortocoronary bypass graft | CPT/HCPCS: 93306 ==

== ENCOUNTER → 2023-02-09 11:21 | Outpatient (CLI) | payer BC, MEDICARE, SELFPAY ==
--- NOTE | 2023-02-09 11:22 | NM_ITS ---
APPROVED REPORT Exam: Nuclear Stress Test Indication: chest pain..soa..fatigue..high cholesterol Patient Location: Outpatient Stress Tech: Teresa Venegas PA Tech:JOURDAN Ch RT(R)(N) Ht: 5 ft 10 in Wt: 195 lbs HR: 68 bpm BP: 152/79 mmHg BSA: 2.07 m2 Rhythm: NSR TID: 1.01 BMI: 27.9 History: chest pain..soa..fatigue..high cholesterol Procedure: Patient received 0.4 mg of intravenous Lexiscan, resting heart rate 68 bpm, resting blood pressure 152/79 mmHg, with Lexiscan maximum heart rate achieved was 87 bpm which is 85 % of the maximum predicted heart rate and blood pressure was 157/73 mmHg. With Lexiscan, patient denied any complaint of chest pain. Cardiac Stress and Resting SPECT Images: Cardiac Stress and Resting SPECT images were obtained using technetium 99m Myoview 30.2 mCi stress and 9.93 mCi at rest. Resting and stress imaging in supine and prone positions demonstrate no evidence of fixed or reversible perfusion defects. Gated imaging demonstrates normal global and regional LV systolic function. LVEF is calculated at 56%. Conclusion: No evidence of fixed or reversible perfusion defects. Gated imaging demonstrates normal global and regional LV systolic function. LVEF is calculated at 56%. Electronically signed by : Yarely Barrios MD 02/12/2023 22:45:40
--- NOTE | 2023-02-09 13:38 | CA_ITS ---
APPROVED REPORT Exam: Pharmacologic Technologist: Teresa Venegas Ht: 5 ft 10 in Wt: 206 lbs BSA: 2.11 m2 HR: 62 bpm BP: 152/79 mmHg Indications: i20.9, I20.89 Medical History Medications: Aspirin,,,,, RoSUVASTATIN,,,,, Centrum,,,,, Tylenol PM,,,,, Stress Test Details Test: LEXISCAN HR Resting HR: 68 bpm Max Heart Rate (APMHR): 148 bpm Max HR Achieved: 87 bpm Target HR (85% APMHR): 126 bpm % of APMHR: 59 Recovery HR: 77 bpm BP Resting BP: 152.0/79.0 mmHg Max BP: 157.0/73.0 mmHg Recovery BP: 125.0/83.0 mmHg ECG Resting ECG: Sinus rhythm Stress ECG: No significant ST changes Arrhythmia: PVCs Clinical Exercise duration: 04:01 min Highest Stage Achieved: Exercise capacity: 1.0 METs Stress ECG Conclusion Symptoms: Chest pressure, shortness of breath Arrhythmias/Ectopy: PVC ST-T Changes: No significant ST changes. Conclusion: Unremarkable Lexiscan stress test. Myoview images are reported separately. Test Summary REST . . . . . . . Resting REST 02:42 . . 68 . 152/ 79 . . Stage 1 . . . . . . . Myoview Injected Stage 1 01:00 . . 83 . . . . Stage 2 . . . . . . . chest pressure Stage 2 01:00 . . 86 . 133/ 76 . . Stage 3 01:00 . . 84 . . . . Stage 4 01:00 . . 79 . 157/ 73 . . Stage 4 01:01 . . 78 . 157/ 73 . Stop exercise at 04:01 RECOVERY 01:00 . . 74 . . . . RECOVERY 02:00 . . 77 . 154/ 76 . . RECOVERY 02:30 . . 76 . 125/ 83 . . Electronically signed by : Yarely Barrios MD 02/12/2023 22:44:08
== END ==
PROVIDERS: PCP Family Medicine; Visit Provider Nurse Practitioner Family
DX: I25.10 Atherosclerotic heart disease of native coronary artery without angina pectoris (principal); I10 Essential (primary) hypertension; R00.1 Bradycardia, unspecified; R06.00 Dyspnea, unspecified; R94.31 Abnormal electrocardiogram [ECG] [EKG]; E78.5 Hyperlipidemia, unspecified; Z95.1 Presence of aortocoronary bypass graft
CPT/HCPCS: 78452; 93017; A9502; J2785

== ENCOUNTER → 2023-02-24 10:19 | Outpatient (CLI) | payer BC, MEDICARE, SELFPAY ==
[2023-02-24 11:35] LABS: Basophils # 0.1 K/mm3 (0-0.2); Basophils % 0.7 % (0.1-2.0); Eosinophils # 0.6 K/mm3 (0.0-0.4); Eosinophils % 7.7 % (0.1-12.0); Hematocrit 46.7 % (42.0-52.0); Lymphocytes # 1.3 K/mm3 (0.7-4.5); Lymphocytes % 16.3 % (10-50); Mean Corpuscular HGB Conc 34.2 g/dL (31.8-35.4); Mean Corpuscular Hemoglobin 30.9 pg (27.0-31.2); Mean Corpuscular Volume 90.3 fl (80-94); Mean Platelet Volume 7.9 fl (7.4-10.4); Monocytes # 0.8 K/mm3 (0.1-1.0); Monocytes % 9.3 % (1.7-9.3); Neutrophils # 5.3 K/mm3 (1.8-7.8); Platelet Count 216 K/mm3 (142-424); Red Blood Count 5.17 M/mm3 (4.60-6.20); Red Cell Distribution Width 13.1 % (11.5-17.5)
[2023-02-24 12:17] LABS: Alanine Aminotransferase 31 U/L (12-78); Albumin Level 4.2 g/dl (3.5-5.0); Alkaline Phosphatase 72 U/L (38-126); Anion Gap 12.6 mEq/L (5-15); Aspartate Amino Transferase 42 U/L (17-59); Bilirubin,Direct 0.1 mg/dl (0.0-0.4); Bilirubin,Indirect 0.5 mg/dL (0.0-0.9); Bilirubin,Total 0.6 mg/dl (0.2-1.3); Bilirubin,Unconjugated 0.6 mg/dL (0.0-1.1); Blood Urea Nitrogen 12 mg/dl (9-20); Calcium 9.2 mg/dl (8.4-10.2); Carbon Dioxide 28 mmol/L (22.0-30.0); Chloride 103 mmol/L (98-107); Chol/HDL Ratio 5.5 (1-3.5); Cholesterol 148 mg/dl (140-200); Estimated Glomerular Filt Rate 83 ml/min (>60); GFR (African American) 100 ML/MIN (>60); Glucose 92 mg/dl (74-100); HDL Cholesterol 27 mg/dl (40-60); Potassium 4.6 mmoL/L (3.5-5.1); Sodium 139 mmol/L (136-145); Total Protein,Serum 6.7 g/dl (6.3-8.2); Triglycerides 206 mg/dl (30-150); VLDL Cholesterol 41 mg/dL (0-40)
[2023-02-24 12:24] LABS: Iron 101 ug/dL (49-181)
[2023-02-24 12:28] LABS: Direct LDL Cholesterol 90.99 mg/dL (100-129); Free T4 (Free Thyroxine) 0.96 ng/dl (0.78-2.19)
[2023-02-24 12:33] LABS: Total Iron Binding Capacity 313 ug/dL (261-462)
[2023-02-24 12:43] LABS: Thyroid Stimulating Hormone 1.51 uIU/mL (0.465-4.68)
[2023-02-24 13:18] LABS: Vitamin B12 451 pg/mL (239-931)
[2023-03-03 12:14] LABS: 1,25 Dihydroxy Vitamin D 43 pg/mL (.); 1,25-Dihydroxy, Vitamin D-2 <10 pg/mL (.); 1,25-Dihydroxy, Vitamin D-3 42 pg/mL (.)
== END ==
PROVIDERS: PCP Family Medicine; Visit Provider Nurse Practitioner Family
DX: I11.9 Hypertensive heart disease without heart failure (principal); I25.119 Atherosclerotic heart disease of native coronary artery with unspecified angina pectoris; E78.5 Hyperlipidemia, unspecified; R00.1 Bradycardia, unspecified; R06.00 Dyspnea, unspecified; R53.83 Other fatigue; R94.31 Abnormal electrocardiogram [ECG] [EKG]; Z95.1 Presence of aortocoronary bypass graft
CPT/HCPCS: 36415; 80048; 80061; 80076; 82607; 82652; 82746; 83540; 83550; 84439; 84443; 85025

== ENCOUNTER 2023-11-29 07:24 | Outpatient (CLI) | payer BC, MEDICARE, SELFPAY ==
--- NOTE | 2023-11-29 | CA_ITS ---
FINAL REPORT TECHNIQUE: Color Doppler, duplex Doppler and tristan scale sonography of the bilateral neck arterial vasculature was performed. Velocities were measured in the carotid arteries. Stenosis evaluation based on the validated velocity criteria. CLINICAL HISTORY: HTN, HLD, AFIB, CABG COMPARISON: None FINDINGS: The peak systolic velocity of the right common carotid artery is 60 cm/s. The peak systolic velocity of the right internal carotid artery is 77 cm/s and end diastolic velocity 31 cm/s. The ICA/CCA ratio is 1.51. A mild amount of plaque is present. The right external carotid artery is patent. The right vertebral artery is patent with antegrade flow. The peak systolic velocity of the left common carotid artery is 80 cm/s. The peak systolic velocity of the left internal carotid artery is 78 cm/s and end diastolic velocity 24 cm/s. The ICA/CCA ratio is 1.36. A mild amount of plaque is present. The left external carotid artery is patent.The left vertebral artery is patent with antegrade flow. IMPRESSION: Less than 50% bilateral carotid stenoses. Bilateral patent vertebral arteries with antegrade flow. If indicated, CTA or MRA could further evaluate. Reviewed, Interpreted and Dictated by Kwaku Walker MD Transcribed by Maria Esther Portillo Authenticated and [facility]
[2023-11-29 07:58] LABS: Blood Urea Nitrogen 14 mg/dl (9-20); Estimated Glomerular Filt Rate 73 ml/min (>60); GFR (African American) 89 ML/MIN (>60)
--- NOTE | 2023-11-29 08:20 | CT_ITS ---
FINAL REPORT TECHNIQUE: multiple axial CT images were performed from the foramen magnum to the vertex without enhancement. Axial imaging of the head was obtained without contrast. This study was performed with techniques to keep radiation doses as low as reasonably achievable, (ALARA). Individualized dose reduction techniques using automated exposure control or adjustment of mA and/or kV according to the patient's size were employed. CLINICAL HISTORY: HALLUCINATIONS, DIZZINESS, SNORING, SLEEP DISORDER, COGNATIV COMPARISON: MRI of the head dated 05/26/2021 FINDINGS: CT HEAD WITHOUT CONTRAST: The ventricles are enlarged. There is mild diffuse atrophy. There is mild periventricular white matter change likely related to small vessel disease. There is no evidence of hemorrhage. No masses are identified. No extra-axial fluid is seen. Anterior falcine calcification is present. The sinuses are normal. IMPRESSION: Mild atrophy and mild chronic changes without acute process. Reviewed, Interpreted and Dictated by Kwaku Walker MD Transcribed by Zuri Castañeda Authenticated and [facility]
[2023-11-29] MEDS: IOPAMIDOL-300 (61%) 100ML VIAL 100 ML IV (09:00)
[2023-11-29] MEDS: SODIUM CHLORIDE 0.9% 10ML SYR (RAD ONLY) 10 ML IV (09:00)
== END 2023-11-29 23:59 | disposition home or self-care (01) ==
PROVIDERS: PCP Family Medicine; Visit Provider Family Medicine
DX: R42 Dizziness and giddiness (principal); I25.10 Atherosclerotic heart disease of native coronary artery without angina pectoris; R44.3 Hallucinations, unspecified; R06.83 Snoring; G47.9 Sleep disorder, unspecified; R41.89 Other symptoms and signs involving cognitive functions and awareness
CPT/HCPCS: 36415; 70470; 82565; 84520; 93880; Q9967

== ENCOUNTER 2024-01-23 10:57 | Emergency (ER) | payer BC, MEDICARE, SELFPAY ==
[2024-01-23 10:58] VITALS: BP 142/85; PULSE 65; RESP 18; TEMP 36.6; O2SAT 98; BMI 28.7
--- NOTE | 2024-01-23 11:20 | PC.NURSE ---
Dr. Caraballo at BS for pt eval
--- NOTE | 2024-01-23 11:23 | XR_ITS ---
PROCEDURE INFORMATION: Exam: XR Left Foot Exam date and time: 01/23/2024 11:50 AM Age: 73 years old Clinical indication: Injury or trauma; Other: Stepped on nail; Puncture; Foot; Left; Foreign body involvement not specified; Additional info: Stepped on nail, around 5th mt head TECHNIQUE: Imaging protocol: Radiologic exam of the left foot. Views: 3 or more views. COMPARISON: No relevant prior studies available. FINDINGS: Bones/joints: Degenerative changes in the 1st metatarsophalangeal joint and IP joint. There is no evidence of acute fracture.There is no evidence of malalignment or dislocation. Soft tissues: Normal. Other findings: No definite lytic process. IMPRESSION: 1. Degenerative changes in the 1st metatarsophalangeal joint and IP joint. 2. There is no evidence of acute fracture.There is no evidence of malalignment or dislocation. 3. No definite lytic process.
[2024-01-23 11:30] VITALS: BP 135/71; PULSE 58; O2SAT 98
[2024-01-23] MEDS: TET/DIPHTH/PERT-ADULT 0.5ML SYRINGE 0.5 ML IM (11:31)
--- NOTE | 2024-01-23 11:32 | ED_ITS ---
Discharge Plan Disposition Patient Disposition: Home, Self-Care Condition: Good Prescriptions Prescriptions: New ciprofloxacin HCl 500 mg tablet 500 mg PO BID 7 Days Qty: 14 0RF cephalexin 500 mg capsule 500 mg PO TID 7 Days Qty: 21 0RF No Action Centrum Adult 50 Fresh-Fruity 120 mcg tablet,chewable 1 tab PO DAILY diphenhydramine-acetaminophen [Tylenol PM Extra Strength] 25-500 mg tablet 1 tab PO HS PRN rosuvastatin 20 mg tablet See Rx Instructions .ROUTE .COMPLEX Qty: 90 2RF Dose Instruction: TAKE 1 TABLET BY MOUTH ONCE DAILY FOR CHOLESTEROL Rx Instructions: TAKE 1 TABLET BY MOUTH ONCE DAILY FOR CHOLESTEROL ranolazine 500 mg tablet extended release 12 hr 500 mg PO BID Qty: 180 1RF aspirin 81 MG tablet,delayed release (DR/EC) 81 mg PO DAILY Referrals Follow up/Referrals: Martell Thomas MD [Primary Care Provider] - See instructions Hoa Lawrence DPM [Staff Physician] - See instructions Activity Restrictions/Add. Instructions Additional Instructions/Restrictions: You were evaluated in the emergency department today. Please lease picker your prescriptions for antibiotics at the pharmacy and take the full course as prescribed. Take Tylenol and ibuprofen every 4-6 hours at home as needed for pain. Keep your foot clean and dry. Follow-up closely with Dr. Lawrence with podiatry. Return to the emergency department for new or worsening symptoms. Clinical Impressions Clinical Impression: Puncture wound of foot, left Instructions Patient Instructions: DI for Puncture Wound Print Language Print Language: Singaporean Discharge ED Provider: Dori Caraballo General Adult HPI General Chief complaint: Extremity Injury, Lower Stated complaint: stepped on nail left foot Time Seen by Provider: 01/23/24 11:04 Mode of Arrival: Ambulatory Source of Information: Patient Limitations: No Limitations Description of Symptoms (Recalled from ER Triage Doc. by RN): stepped on a nail yesterday. left foot. History of Present Illness HPI narrative: This patient is a 73-year-old male with a history of hypertension, hyperlipidemia, and CAD status post CABG presenting to the emergency department for evaluation concern for puncture wound to the left foot. Patient stepped on a nail yesterday and it went through his shoe up into his left foot. He has pain there and is concerned that there could be something stuck in his left foot. He did not seek evaluation initially. He is unsure when his last tetanus shot was. No other concerns noted at this time. Related Data Home Medications ?Medication ?Instructions ?Recorded ?Confirmed aspirin 81 mg tablet,delayed 81 mg PO DAILY heart health 11/15/20 02/24/23 release multivitamin with minerals-folic 1 tab PO DAILY 02/17/21 02/24/23 acid 120 mcg chewable tablet (Centrum Adult 50 Plus Fresh-Fruity) diphenhydramine 25 1 tab PO HS PRN 08/04/22 02/24/23 mg-acetaminophen 500 mg tablet (Tylenol PM Extra Strength) Previous Rx's ?Medication ?Instructions ?Recorded rosuvastatin 20 mg tablet See Rx Instructions .Route 04/19/23 .COMPLEX #90 tabs ranolazine 500 mg tablet,extended 500 mg PO BID #180 tabs 09/28/23 release,12 hr cephalexin 500 mg capsule 500 mg PO TID 7 days #21 caps 01/23/24 ciprofloxacin HCl 500 mg tablet 500 mg PO BID 7 days #14 tabs 01/23/24 Allergies Allergy/AdvReac Type Severity Reaction Status Date / Time beta tone AdvReac Severe Uncoded 02/24/23 10:00 [facility] Disclaimer: The information contained in this section may have been updated after the patient was seen, as this information can be updated by other users. Medical History Restless sleeper Daytime somnolence Angina pectoris HLD (hyperlipidemia) HTN (hypertension) Coronary artery disease Bradycardia Surgical History S/P CABG x 2 Social History Smoking Status: Never smoker alcohol intake: current alcohol intake frequency: 0-2 drinks per day substance use type: denies use current occupational status: retired Travel in the last 8 weeks: None household members: spouse housing: house current occupational exposures/hazards: No Other Medical History Have you received the Flu Vaccine for this season: No Have you received the Pneumonia Vaccine: Yes ROS Obtained: Yes All systems reviewed & no additional complaints except as documented Physical Exam General General appearance: alert and in no apparent distress Head Head exam: atraumatic and normocephalic Eye Eye exam: Present normal appearance, PERRL and EOMI ENT ENT exam: Present normal exam, normal oropharynx, mucous membranes moist and normal external ear exam Neck Neck exam: Present normal inspection, full ROM and trachea midline; Absent tenderness Chest Chest inspection: Present normal inspection and symmetric chest wall rise; Absent tenderness Respiratory Respiratory exam: Present normal lung sounds bilaterally; Absent respiratory distress, wheezes, stridor or accessory muscle use Cardiovascular Cardiovascular exam: Present regular rate and normal rhythm Abdominal Exam Abdominal exam: Present soft; Absent distention, tenderness or guarding Extremities Exam Extremities exam: Present full ROM and normal capillary refill; Absent tenderness or edema Expanded Lower Extremity Exam Left: Bottom foot image: 2 1. Puncture wound. No obvious contamination or purulence. Minimal soft tissue swelling. Neurovascularly intact distally Back Exam Back exam: Present normal inspection and full ROM; Absent tenderness Neurological Exam Neurological exam: Present alert, oriented X3, CN II-XII intact and normal gait; Absent motor sensory deficit Psychiatric Psychiatric exam: Present normal affect and normal mood Skin Skin exam: Present warm and dry Medical Decision Making Medical Records Medical records reviewed: Yes I reviewed the patient's medical records. Screening: Per USPSTF and CDC recommendations, given the prevalence of disease in our region, it is our hospital?s policy to screen for HIV and viral Hepatitis for all patients aged 18 and over and those with ongoing risk factors. Mac Inquiry Pt receiving controlled substance: No Vital Signs: 01/23/24 10:58 01/23/24 11:30 Temperature 97.8 F Temperature Source Oral Pulse Rate 58 L Pulse Rate [Right] 65 Respiratory Rate 18 Blood Pressure 135/71 Blood Pressure [Right Arm] 142/85 H Blood Pressure Mean [Right Arm] 104 02 Sat by Pulse Oximetry 98 98 Oxygen Delivery Method Room Air Room Air Lab Data Lab results reviewed: Yes I reviewed the patient's lab results. Orders (Tests/Meds): ED MEDICATIONS Discontinued Medications Generic Name Dose Route Start Last Admin Trade Name Freq PRN Reason Stop Dose Admin Tetanus/Reduced Diphtheria/Acell Pertussis 0.5 ml 01/23/24 11:23 01/23/24 11:31 Tet/Diphth/Pert-Adult 0.5ml Syringe IM 01/23/24 11:24 0.5 ml .ONCE ONE Administration ORDERS Category Date Time Status Foot XR left minimum 3 views [XR foot LT min 3V] Stat Exams 01/23/24 11:23 Taken Medical Decision Narrative: In summary, this patient is a 73-year-old male presenting to the Emergency Department for evaluation of puncture wound to the left foot of a nail through his shoe that happened yesterday. Differential diagnoses considered include but are not limited to puncture wound, foreign body, contamination, infection, neurovascular injury. Ruling out the most morbid conditions drove assessment. It should be noted patient's history includes hypertension, hyperlipidemia, CAD status post CABG which may or may not be at goal therapy. This complicates all aspects of care by increasing patient's risk for morbidity. On exam, the patient is well-appearing. He is a puncture wound to the plantar aspect of the left foot that is noncontaminated with no purulence. He is neurovascularly intact. He was given Tdap booster. Workup included x-rays of the left foot to evaluate for possible retained foreign body. Wound was copiously irrigated with Betadine and saline. I feel he would benefit from antibiotic treatment to minimize risk of osteomyelitis with pseudomonal and staph/strep coverage. Will do dual coverage with ciprofloxacin and cephalexin. I independently interpreted x-ray prior to the radiologist read and noted no obvious retained foreign body and no acute bony abnormality. Please see their read for final interpretation. After wound was irrigated with saline and Betadine and sterile dressing was applied, I feel he is appropriate for discharge home with prescriptions for ciprofloxacin and Keflex to treat empirically. He was given hard sole shoe given significant pain with walking as well as instructions for close follow-up with podiatry. He was given strict return precautions. He was discharged after all questions were answered. Critical Care Critical Care Time Critical Care Time: No
--- NOTE | 2024-01-23 11:51 | SUR.OPER ---
family at BS
--- NOTE | 2024-01-23 11:55 | PC.NURSE ---
RAD at BS for chest xray
[2024-01-23 12:00] VITALS: BP 155/81; PULSE 56; O2SAT 98
[2024-01-23 12:30] VITALS: BP 155/82; PULSE 58; O2SAT 96
[2024-01-23 13:00] VITALS: BP 158/82; PULSE 57; RESP 18; TEMP 36.7; O2SAT 96
== END 2024-01-23 13:01 | disposition home or self-care (01) ==
PROVIDERS: Emergency Provider Emergency Medicine; PCP Family Medicine
DX: S91.332A Puncture wound without foreign body, left foot, initial encounter (principal); M79.672 Pain in left foot; Z23 Encounter for immunization; W45.0XXA Nail entering through skin, initial encounter; Y93.9 Activity, unspecified; Y92.9 Unspecified place or not applicable
CPT/HCPCS: 90471; 73630; 90715; 99283

== ENCOUNTER 2024-05-16 10:47 | Outpatient (CLI) | payer BC, MEDICARE, SELFPAY ==
--- NOTE | 2024-05-16 | CA_ITS ---
APPROVED REPORT Exam: Pharmacologic Technologist: Teresa Venegas Ht: 5 ft 10 in Wt: 203 lbs BSA: 2.10 m2 HR: 55 bpm BP: 134/71 mmHg Stress Test Details Test: Lexiscan HR Resting HR: 55 bpm Max Heart Rate (APMHR): 147.158024 bpm Max HR Achieved: 76 bpm Target HR (85% APMHR): 124.348137 bpm % of APMHR: 51.70 Recovery HR: 64 bpm BP Resting BP: 134.0/71.0 mmHg Max BP: 139.0/67.0 mmHg Recovery BP: 139.0/67.0 mmHg ECG Resting ECG: Sinus bradycardia Stress ECG Conclusion Symptoms: Dyspnea Arrhythmias/Ectopy: - ST-T Changes: Less than [address] depression Concluison: EKG portion unremarkable due to Lexiscan infusion. Electronically signed by : Yarely Barrios MD 05/17/2024 11:10:55
--- NOTE | 2024-05-16 10:53 | CA_ITS ---
APPROVED REPORT EXAM: Comprehensive 2D, Doppler, and color-flow Echocardiogram Oil Field Worker: Ayana Rangel CRT Ht: 5 ft 10 in Wt: 203lbs BSA: 2.10 BP: 130/82 mmHg Indications: Atrial Fibrillation, Fatigue, Hyperlipidemia, Hypertension/HDD, CAD, CABG X 2 2D Dimensions LA Volume 48.90 mL LA Volume Index 22.70 mL/m2 (M/F) 16-34 M-Mode Dimensions RVDd 3.76 cm (0.9-2.6) LA Diam 4.10 cm (1.9-4.0) LVDd 5.28 cm (3.5-5.7) LVDs 3.69 cm (3.5-5.7) IVSd 1.18 cm (0.6-1.1) PWd 0.72 cm (0.6-1.1) EF (Teich) 56.90% FS 30.10% EDV (Teich) 134.20 mL TAPSE 1.75 (<1.7) ESV (Teich) 57.80 mL LV Diastology E Decel Time 220 (160-240 msec) E/A Ratio 0.92 MED A' 10.80 cm/s LAT A' 12.40 cm/s Aortic Valve AO Peak GR. 6.70 mmHg Mitral Valve MV E Max Avtar. 69.0 (40-130 cm/s) MV A Velocity 75.0 (40-130 cm/s) E/A Ratio 0.92 MV PHT 64.0 ms Pulmonary Valve PV Peak Velocity 115.0 (50-150 cm/s) Tricuspid Valve TR P. Velocity 275.00 cm/s RAP Estimate 10.00 mmHg RVSP 40.30 mmHg Left Ventricle The left ventricle is normal size. The left ventricular systolic function is normal. The left ventricular ejection fraction is within the normal range. There is normal left ventricular wall thickness. There is normal LV segmental wall motion. Diastolic function is indeterminate. LVEF is 60%. Right Ventricle Right ventricle is moderately dilated. The right ventricular systolic function is low-normal. Atria The left atrium is mildly dilated. The right atrium is mildly dilated. There is no Doppler evidence of interatrial shunt. Aortic Valve The aortic valve is mildly thickened. There is no aortic valvular stenosis. No aortic regurgitation is present. Mitral Valve The mitral valve is normal in structure. No evidence of mitral valve stenosis. Trace mitral regurgitation. Tricuspid Valve The tricuspid valve leaflets are thin and pliable. Mild tricuspid regurgitation. RVSP is 25???30 mmHg. Pulmonic Valve The pulmonary valve is normal in structure. Trace pulmonic regurgitation. Great Vessels The aortic root is normal in size. The ascending aorta is normal in size. IVC is normal in size and collapses >50% with inspiration. Pericardium There is no pericardial effusion. Other Information Study Quality: Fair Conclusion Normal LV systolic function. Moderate RV dilation with low-normal RV function Mild TR. RVSP 25???30 mmHg. Electronically signed by : Yarely Barrios MD 05/22/2024 00:26:25
--- NOTE | 2024-05-16 11:22 | NM_ITS ---
APPROVED REPORT Exam: Nuclear Stress Test Indication: soa..palpitations..syncope..fatigue Patient Location: Outpatient Stress Tech: Teresa Venegas [place] Tech:Gloria Dorado, ARRT, RT (R)(N) Ht: 5 ft 10 in Wt: 200 lbs HR: 53 bpm BP: 134/71 mmHg BSA: 2.09 m2 TID: 1.04 BMI: 28.6 History: soa..palpitations..syncope..fatigue Procedure: Patient received 0.4 mg of intravenous Lexiscan, resting heart rate 53 bpm, resting blood pressure 134/71 mmHg, with Lexiscan maximum heart rate achieved was 76 bpm which is 85 % of the maximum predicted heart rate and blood pressure was 139/67 mmHg. With Lexiscan, patient denied any complaint of chest pain. The patient was not able to lay on his belly for prone images. Cardiac Stress and Resting SPECT Images: Cardiac Stress and Resting SPECT images were obtained using technetium 99m Myoview 31.3 mCi stress and 10.85 mCi at rest. The patient could not lie on his abdomen. Therefore, prone stress imaging could not be performed. This may affect the diagnostic interpretation of the study findings. Resting and stress imaging in supine positions demonstrate no evidence of fixed or reversible perfusion defects. Gated imaging demonstrates normal global and regional LV systolic function. LVEF is calculated at 53%. Of note, the right ventricle appears to be dilated. Clinical correlation with new or recent TTE is suggested. Conclusion: No evidence of fixed or reversible perfusion defects. Gated imaging demonstrates normal global and regional LV systolic function. LVEF is calculated at 53%. Of note, the right ventricle appears to be dilated. Clinical correlation with new or recent TTE is suggested. Electronically signed by : Yarely Barrios MD 05/17/2024 11:05:08
[2024-05-16] MEDS: ISOTOPE MYOVIEW (PER STUDY) 1 DOSE IV (13:35)
[2024-05-16] MEDS: SODIUM CHLORIDE 0.9% 10ML SYR (RAD ONLY) 10 ML IV ×2 (13:35)
[2024-05-16] MEDS: REGADENOSON 0.4MG/5ML SYRINGE 0.4 MG IV (13:35)
== END 2024-05-16 23:59 | disposition home or self-care (01) ==
LOC: RT 10:49
PROVIDERS: PCP Family Medicine; Visit Provider Nurse Practitioner Family
DX: I25.118 Atherosclerotic heart disease of native coronary artery with other forms of angina pectoris (principal); I10 Essential (primary) hypertension; Z95.1 Presence of aortocoronary bypass graft; R94.31 Abnormal electrocardiogram [ECG] [EKG]
CPT/HCPCS: 78452; 93017; 93018; 93306; A9502; J2785

== ENCOUNTER 2024-12-16 08:57 | Outpatient (CLI) | payer BC, MEDICARE, SELFPAY ==
--- OUTSIDE RECORDS SUMMARY | 2023-08-26 11:45 | XMS_ITS ---
Author Organization [facility] Address [address] [facility] [address] [place] [id number] Care Team Providers Care Casting Carrier Name Role Phone Griffin Ruiz Primary Care Provider [phone] Jesus Thomas Unavailable [phone] Allergies No Known Allergies REASON FOR VISIT confussion issues Medications Medication SIG (Take, Route, Frequency, Duration) Notes Start Date End Date Status Tylenol 325 MG 1 tablet as needed Orally every 4 hrs Active Donepezil HCl 5 MG 1 tab(s) Orally At B ed Time 08/26/2023 Active Ranolazine ER 500 MG 1 tablet Orally Twi ce a day; Duration: 30 day(s) Active Nitroglycerin 0.4 MG 1 tab(s) sublingual ly every 5 minutes x 3 10/30/2020 Not-Taking Anusol-HC 2.5 % 1 application Externally Twice a day 12/09/2022 Not-Takin g Nadolol 20 MG 1/2 tab orally once a day Not-Taking Amiodarone HCl 200 MG 1 tab(s) orally on ce a day; Duration: 30 day(s) Not-Taking Isosorbide Mononitrate ER 60 MG 1 tab(s) orally once a day (in the morning); Duration: 30 day(s) Not-Taking Rosuvastatin Calcium 20 MG 1 tab(s) orally once a day; Duration: 30 day(s) Active Docusate Sodium 100 MG 1 cap(s) orally o nce daily Active ALPRAZolam 0.5 MG 1 tab(s) orally as directed 01/06/2022 Not-Taking Aspir-Low 81 MG 1 tab(s) orally once a day; Duration: 30 day(s) Active Anusol-HC 25 MG 1 suppository Rectal Once a day 12/09/2022 Not-Taking Problems Problem Type SNOMED Code ICD Code Onset Dates Problem Status W/U Status Risk Notes Problem Impaired cognition (finding) (540645145) Cognitive deficits (R41.89) Active confirmed Vital Signs Blood pressure systolic 00 mm Hg 08/26/19 24 Blood pressure diastolic 00 mm Hg 024 Height 71 in 08/26/2023 Weight 000 lbs 08/26/2023 Encounters Encounter Location Date Provider Diagnosis [facility] [address] [place] [id number] 08/26/2023 Jesus Thomas Cognitive deficits R41.89 Assessments Encounter Date Diagnosis (ICD Code) Assessment Notes Treatment Notes Treatment Clinical Notes Section Notes 08/26/2023 Cognitive deficits (ICD-10 - R41.89) Discussed referral for neurologic consultation. She does not think he will agree to see a neurologist or agree to any testing at this time. Will begin trial of donepezil and titrate over the next month or 2. Plan Of Treatment Medication Medication Name Sig Start Date Stop Date Notes Donepezil HCl 5 MG 1 tab(s) Orally At Bed Time 08/26/2023 Treatment Notes Assessment Notes Cognitive deficits Discussed referral f or neurologic consultation. She does not think he will agree to see a neurologist or agree to any testing at this time. Will begin trial of donepezil and titrate over the next month or 2. Next Appt Details Follow Up: 4 Weeks, Reason: Provider Name:Jesus Almazan, 12/26/2024 10:30:00 AM, [address] [facility], [address], [place], [id number], Progress Notes * ALFREDO GORDILLODOB: (74 yo M)Acc No.[id number]:08/26/2023 Progress Notes Patient: ALFREDO CERRATO Provider: Jesus Thomas M.D. :1950 A ge:73 Y S ex:Male Date:08/26/2023 Address:[address], [place], [id number] Pcp:Griffin Ruiz Subjective: * Chief Complaints: * 1 . Confussion issues. * HPI: N eurology: His comes in today with concerns about memory issues. Tr is not present for the interview today. His notes that problems began after his open heart surgery 3 years ago. He spent 10 days in the ICU postop with acute delirium. After discharge he was noted with some memory problems and hallucinations. He did see a neurologist at the time and workup was reportedly normal and he did seem to gradually improve. However over the past several months, his has noticed some problems with confusion occasionally in the form of visual hallucinations. He sometimes forgets how to do simple tasks that he has always done in the past; i.e. for example backing a trailer into the barn. He seems to be more easily frustrated and more easily agitated lately. * ROS: D ERMATOLOGY: no R samuel. n o H arlette. G ASTROENTEROLOGY: no N ausea. n o V omiting. n o D iarrhea.? U ROLOGY: no D ifficulty urinating. n o B lood in urine. * Medical History: M igraine headaches, Normal cardiolyte stress test - 09/2020. * Surgical History: a ppendectomy , C-scope 2016, CABG x 2/ Dr. Peres/ 11/25/2020. * Hospitalization/Major Diagno stic Procedure: h eart surgery 11/25/2020. * Family History: F ather: , Colon cancer. M other: , cancer. 3 brother(s) , 2 sister(s) . 2 son(s) . . * Social History: C URRENT TOBACCO USE S moking Status: Patient does NOT smoke. C affeine: yes, frequency:2 cups of coffee a day. Past smoking status: no. Alcohol: Yes, Type: , Frequency: ,Years: , Determination:beer, occasional. * Medications: T aking Ranolazine ER 500 MG Tablet Extended Release 12 Hour 1 tablet Orally Twice a day , Taking Tylenol 325 MG Tablet 1 tablet as needed Orally every 4 hrs , Taking Docusate Sodium 100 MG Capsule 1 cap(s) orally once daily , Taking Rosuvastatin Calcium 20 MG Tablet 1 tab(s) orally once a day , Taking Aspir-Low 81 MG Tablet Delayed Release 1 tab(s) orally once a day , Not-Taking ALPRAZolam 0.5 MG Tablet 1 tab(s) orally as directed , Not-Taking Anusol-HC 25 MG Suppository 1 suppository Rectal Once a day , Not-Taking Anusol-HC 2.5 % Cream 1 application Externally Twice a day , Not-Taking Amiodarone HCl 200 MG Tablet 1 tab(s) orally once a day , Not- Taking Nadolol 20 MG Tablet 1/2 tab orally once a day , Not-Taking Isosorbide Mononitrate ER 60 MG Tablet Extended Release 24 Hour 1 tab(s) orally once a day (in the morning) , Not-Taking Nitroglycerin 0.4 MG Tablet Sublingual 1 tab(s) sublingually every 5 minutes x 3 , Discontinued Cefdinir 300 MG Capsule 1 cap(s) Orally Two times a day , Discontinued Benzonatate 200 MG Capsule 1 capsule Orally Three times a day , Medication List reviewed and reconciled with the patient * Allergies: N .K.D.A. Objective: * Vitals: W t:000, Temp:00, BP:00/00, Nurse:SISSY, Ht: 71. Assessment: * Assessment: 1. C ognitive deficits - R41.89 (Primary) Plan: * Treatment: * Follow Up: 4 Weeks * Images: Billing Information: * Visit Code: 17572 Office Visit, Est Pt., Level 3. * Procedure Codes: * Electronic signature of Jesus Thomas MD on 12/16/2024 at 09:04 AM EDT Sign off status: Pending * Provider: Jesus Thomas M.D. Date: 0 08/26/2023 Generated for Duane santana/Maryse/Pito on: 12/16/2024 09:04 AM EDT
--- OUTSIDE RECORDS SUMMARY | 2023-11-11 07:35 | XMS_ITS ---
[facility] Address [address] [facility] [address] [id number] Care Team Providers Care Feedlot Manager Name Role Phone Griffin Ruiz Primary Care Provider Jesus Thomas Unavailable [phone] Allergies No Known Allergies Results Component Value Reference Range Notes CT Scan : Head with and with out contrast Reviewed date:11/30/2023 08:51:57 AM Interpretation: Performing Lab: Notes/Report: Carotid Duplex Reviewed date:11/30/2023 08:52:12 AM Interpretation: Performing Lab: Notes/Report: REASON FOR VISIT discuss having hallucinations Medications Medication SIG (Take, Route, Frequency, Duration) Notes Start Date End Date Status Ranolazine ER 500 MG 1 tablet Orally Twi ce a day; Duration: 30 day(s) Active Isosorbide Mononitrate ER 60 MG 1 tab(s) orally once a day (in the morning); Duration: 30 day(s) Not-Taking Nadolol 20 MG 1/2 tab orally once a day Not-Taking Nitroglycerin 0.4 MG 1 tab(s) sublingual ly every 5 minutes x 3 10/30/2020 Not-Taking Anusol-HC 25 MG 1 suppository Rectal Once a day 12/09/2022 Not-Taking ALPRAZolam 0.5 MG 1 tab(s) orally as directed 01/06/2022 Not-Taking Amiodarone HCl 200 MG 1 tab(s) orally on ce a day; Duration: 30 day(s) Not-Taking Anusol-HC 2.5 % 1 application Externally Twice a day 12/09/2022 Not-Takin g Aspir-Low 81 MG 1 tab(s) orally once a day; Duration: 30 day(s) Active Tylenol 325 MG 1 tablet as needed Orally every 4 hrs Active Rosuvastatin Calcium 20 MG 1 tab(s) orally once a day; Duration: 30 day(s) Active Docusate Sodium 100 MG 1 cap(s) orally o nce daily Not-Taking Problems Problem Type SNOMED Code ICD Code Onset Dates Problem Status W/U Status Risk Notes Problem Hallucinations (2678450) Hallucinations (R44.3) Active confirmed Problem Sleep disorder (99707470) Sleep disorder (G47.9) Active confirmed Problem Cardiovascular disease (84109578) Cardiovascular disease (I25.10) Active confirmed Vital Signs Blood pressure systolic 130 mm Hg 11/11/19 24 Blood pressure diastolic 88 mm Hg 024 Heart Rate 62 /min 11/11/2023 Height 71 in 11/11/2023 Weight 201.2 lbs 11/11/2023 BMI 28.06 kg/m2 11/11/2023 Encounters Encounter Location Date Provider Diagnosis [facility] [address] [facility] [address] [place], [place] [id number] 11/11/2023 R Ryan Thomas Hallucinations R44.3 ; Dizziness R42 ; Snorings R06.83 ; Sleep disorder G47.9 ; Cardiovascular disease I25.10 and Cognitive deficits R41.89 Assessments Encounter Date Diagnosis (ICD Code) Assessment Notes Treatment Notes Treatment Clinical Notes Section Notes 11/11/2023 Hallucinations (ICD-10 - R44.3) 11/11/2023 Dizziness (ICD-10 - R42) 11/11/2023 Snorings (ICD-10 - R06.83) 11/11/2023 Sleep disorder (ICD-10 - G47.9) 11/11/2023 Cardiovascular disease (ICD-10 - I25.10) 11/11/2023 Cognitive deficits (ICD-10 - R41.89) Donepezil is rarely reported to cause hallucinations Plan Of Treatment Medication Medication Name Sig Start Date Stop Date Notes Donepezil HCl 5 MG 1 tab(s) Orally At Bed Time Treatment Notes Assessment Notes Cognitive deficits Donepezil is rarely reported to cause hallucinations Pending Test Test Name Order Date sleep study 11/11/2023 Next Appt Details Follow Up: after tests, Reas on: Provider Name:Jesus Bran aisha, 12/26/2024 10:30:00 AM, [address], [address], [place], [place], [id number], Progress Notes * ALFREDO GORDILLODOB: (74 yo M)Acc No.[id number]:11/11/2023 Progress Notes Patient: ALFREDO CERRATO Provider: Jesus Thomas M.D. :1950 A ge:73 Y S ex:Male Date:11/11/2023 Address:[facility] [address], [id number] Pcp:Griffin Ruiz Subjective: * Chief Complaints: * 1 . Discuss having hallucinations. * HPI: N eurology: Pt presents today with visual hallucinations. Pt sts that he sees people that are not there. Pt sts that sometimes he sees his brother or his son and he talks to them but sts that they do not talk back to him. He often talks to people that are not there and then realizes no one is present. states he often wakes in the night and thinks someone is in the house. She does report that he snores frequently. She is not aware of apnea symptoms. He has never had a sleep study. 73 year old male presents with c/o Dizziness W hich she describes as feeling off balance and sometimes runs into the wall. No true vertigo. He denies headache, blurred vision, double vision.. He has been bothered with hallucinations off and on since his heart surgery 3 years ago. He actually saw Dr. Allison 2 years ago and had a workup with labs and MRI of the brain which was noncontributory. She provided a wide differential for his symptoms but he was lost to follow-up with her. * ROS: D ERMATOLOGY: no R samuel. [...] needed Orally every 4 hrs , Taking Rosuvastatin Calcium 20 MG Tablet 1 tab(s) orally once a day , Taking Aspir-Low 81 MG Tablet Delayed Release 1 tab(s) orally once a day , Taking Donepezil HCl 5 MG Tablet 1 tab(s) Orally At Bed Time , Not-Taking Docusate Sodium 100 MG Capsule 1 cap(s) orally once daily , Not-Taking ALPRAZolam 0.5 MG Tablet 1 tab(s) orally as directed , Not-Taking Anusol-HC 25 MG Suppository 1 suppository Rectal Once a day , Not- Taking Anusol-HC 2.5 % Cream 1 application Externally Twice a day , Not-Taking Amiodarone HCl 200 MG Tablet 1 tab(s) orally once a day , Not-Taking Nadolol 20 MG Tablet 1/2 tab orally once a day , Not-Taking Isosorbide Mononitrate ER 60 MG Tablet Extended Release 24 Hour 1 tab(s) orally once a day (in the morning) , Not-Taking Nitroglycerin 0.4 MG Tablet Sublingual 1 tab(s) sublingually every 5 minutes x 3 , Medication List reviewed and reconciled with the patient * Allergies: N .K.D.A. Objective: * Vitals: W t:201.2, Temp:97.5, BP:130/88, HR:62, O2 Sat:99% on RA, Nurse:SISSY, Ht: 71, BMI:28.06. * Examination: G eneral Examination: General Appearance: A lert, cooperative, NAD. H EENT:?Bilateral hearing aids otherwise unremarkable. O ral cavity: n o lesions, mucosa moist and WNL, no erythema. N arthur: s upple, no lymphadenopathy, no carotid bruits. H eart: RSR. L ungs: c lear to auscultation. N eurologic Exam: no focal deficits. ? Assessment: * Assessment: 1. H allucinations - R44.3 (Primary) 2 . D izziness - R42 3 . S norings - R06.83 4 . S leep disorder - G47.9 5 . C ardiovascular disease - I25.10 6 . C ognitive deficits - R41.89 Plan: * Treatment: 2.?Dizziness?Imaging: CT Scan : Head with and without contrast (Performed Date - 11/29/2023)* Notify Rebeca, at of [email or web address],Brynn 11/11/2023 2:00:30 PM > auth#[id number]; CPT code 58425; faxed to Jesus Upton 11/30/2023 8:51:52 AM > See phone encounter ?Imaging: Carotid Duplex (Performed Date - 11/29/2023)* Notify Rebeca somers, at of [facility] 11/11/2023 2:01:18 PM > auth#[id number]; CPT code 02232; faxed to Jesus Upton 11/30/2023 8:52:06 AM > See phone encounter 3.?Snorings?Imaging: sleep study* Home sleep studyNotify Rebeca somers, at [phone] of [facility] 11/11/2023 2:20:54 PM > faxed order to Nicole Monroy 12/29/2023 9:22:38 AM > when contacted regarding sleep study patient declined to schedule ?Imaging: CT Scan : Head with and without contrast (Performed Date - 11/29/2023)* Notify Rebeca, at of [facility] 11/11/2023 2:00:30 PM > auth#[id number]; CPT code 52594; faxed to Jesus Upton 11/30/2023 8:51:52 AM > See phone encounter 4.?Sleep disorder?Imaging: sleep study* Home sleep studyNotify Rebeca somers, at [phone] of [facility] 11/11/2023 2:20:54 PM > faxed order to Nicole Monroy 12/29/2023 9:22:38 AM > when contacted regarding sleep study patient declined to schedule ?Imaging: CT Scan : Head with and without contrast (Performed Date - 11/29/2023)* Notify Rebeca somers, at of [facility] 11/11/2023 2:00:30 PM > auth#[id number]; CPT code 27358; faxed to Jesus Upton 11/30/2023 8:51:52 AM > See phone encounter 5.?Cardiovascular disease?Imaging: Carotid Duplex (Performed Date - 11/29/2023)* Notify Rebeca somers, at of [facility] 11/11/2023 2:01:18 PM > auth#[id number]; CPT code 74958; faxed to Jesus Upton 11/30/2023 8:52:06 AM > See phone encounter 6.?Cognitive deficits? Stop Donepezil HCl Tablet, 5 MG, 1 tab(s), Orally, At Bed Time.?Imaging: CT Scan : Head with and without contrast (Performed Date - 11/29/2023)* Notify Rebeca somers, at [phone] of [id number],Brynn 11/11/2023 2:00:30 PM > auth#[id number]; CPT code 58414; faxed to NicolechenteJesus Davis 11/30/2023 8:51:52 AM > See phone encounter Notes: Donepezil is rarely reported to cause hallucinations?? * Procedure Codes: 9 4760 PULSE OX * Follow Up: a fter tests * Images: Billing Information: * Visit Code: 16064 Office Visit, Est Pt., Level 4. * Procedure Codes: 34618 PULSE OX. * Electronic signature of Jesus Thomas MD on 12/16/2024 at 09:03 AM EDT Sign off status: Pending * Provider: Jesus Thomas M.D. Date: 11/11/2023 Generated for Printi max/Daisyg/eTransmitting on: 0 12/16/2024 09:03 AM EDT History and Physical Notes * HPI (History of Present Illness) Category Sub-Category Detail Notes Category Not es Neurology Dizziness Which she descri bes as feeling off balance and sometimes runs into the wall. No true vertigo. He denies headache, blurred vision, double vision. He has been bothered with hallucinations off and on since his heart surgery 3 years ago. He actually saw Dr. Allison 2 years ago and had a workup with labs and MRI of the brain which was noncontributory. She provided a wide differential for his symptoms but he was lost to follow-up with her. Examination Category Sub-Category Detail Notes Category Not es General Examination HEENT: Bilateral he aring aids otherwise unremarkable Heart: RSR Lungs: clear to auscultatio n General Appearance: Alert, cooperative, NAD Neurologic Exam: no focal deficits Neck: supple, no lymphaden opathy, no carotid bruits Oral cavity: no lesions, mucosa m oist and WNL, no erythema
--- OUTSIDE RECORDS SUMMARY | 2023-12-08 04:45 | XMS_ITS ---
[facility] Address [address] [place] [id number] Care Team Providers Care Recruiting Coordinator Name Role Phone Griffin Ruiz Primary Care Provider Jesus Thomas Unavailable [phone] Results Component Value Reference Range Notes Urinalysis - Inhouse Reviewed date:12/08/2023 12:39:25 PM Interpretation: Performing Lab: Notes/Report: Color/Clarity yellow/clear Leuk neg Nitrite neg Urobili 3.2 Protein neg pH 6.0 Blood neg Sp. Gr. 1.025 Ketone trace Bili neg Gluc neg REASON FOR VISIT urine sample Medications Medication SIG (Take, Route, Frequency, Duration) Notes Start Date End Date Status Isosorbide Mononitrate ER 60 MG 1 tab(s) orally once a day (in the morning); Duration: 30 day(s) Not-Taking Ranolazine ER 500 MG 1 tablet Orally Twi ce a day; Duration: 30 day(s) Active Nitroglycerin 0.4 MG 1 tab(s) sublingual ly every 5 minutes x 3 10/30/2020 Not-Taking Tylenol 325 MG 1 tablet as needed Orally every 4 hrs Active Rosuvastatin Calcium 20 MG 1 tab(s) orally once a day; Duration: 30 day(s) Active ALPRAZolam 0.5 MG 1 tab(s) orally as directed 01/06/2022 Not-Taking Anusol-HC 25 MG 1 suppository Rectal Once a day 12/09/2022 Not-Taking Anusol-HC 2.5 % 1 application Externally Twice a day 12/09/2022 Not-Takin g Amiodarone HCl 200 MG 1 tab(s) orally on ce a day; Duration: 30 day(s) Not-Taking Nadolol 20 MG 1/2 tab orally once a day Not-Taking Aspir-Low 81 MG 1 tab(s) orally once a day; Duration: 30 day(s) Active Docusate Sodium 100 MG 1 cap(s) orally o nce daily Not-Taking Encounters Encounter Location Date Provider Diagnosis [facility] [address] [facility] [address] [facility] [address] [place], [place] [id number] 12/08/2023 Jesus Thomas Confusion R41 .0 Assessments Encounter Date Diagnosis (ICD Code) Assessment Notes Treatment Notes Treatment Clinical Notes Section Notes 12/08/2023 Confusion (ICD-10 - R41.0) Plan Of Treatment Next Appt Details Provider Name:Jesus Almazan, 12/26/2024 10:30:00 AM, [address] [address] [facility], [address], [place], [place], [id number], Progress Notes * ALFREDO GORDILLODOB: 1 (74 yo M)Acc No.[id number]:12/08/2023 Patient: ALFREDO CERRATO Provider: Jesus Thomas M.D. :1950 A ge:73 Y S ex:Male Date:12/08/2023 Address:[facility] [address], [place], [id number] Pcp:Griffin Ruiz Subjective: * Chief Complaints: * 1 . Urine sample. * Medical History: * Medications: T aking Ranolazine ER 500 MG Tablet Extended Release 12 Hour 1 tablet Orally Twice a day , Taking Tylenol 325 MG Tablet 1 tablet as needed Orally every 4 hrs , Taking Rosuvastatin Calcium 20 MG Tablet 1 tab(s) orally once a day , Taking Aspir-Low 81 MG Tablet Delayed Release 1 tab(s) orally once a day , Not-Taking Docusate Sodium 100 MG Capsule [...] List reviewed and reconciled with the patient Objective: * Vitals: Assessment: * Assessment: 1. C onfusion - R41.0 (Primary) Plan: * Treatment: * Labs: * L ab: Urinalysis - Inhouse (Collection Date & Time - 12/08/2023) Value Reference Range C olor/Clarity yellow/clear * L euk neg * N itrite neg * U robili 3.2 * P rotein neg * p H 6.0 * B lood neg * S p. Gr. 1.025 * K etone trace * B tay neg * G eva neg * Mellisa Villarreal 12/08/2023 8:31:33 AM >Jesus Thomas 12/08/2023 12:39:15 PM > reviewed. See TE * Procedure Codes: 8 1002 Urinalysis, no micro * Images: Billing Information: * Visit Code: * Procedure Codes: 27453 Urinalysis, no micro. * Electronic signature of Jesus Thomas MD on 12/16/2024 at 09:03 AM EDT Sign off status: Pending * Provider: Jesus Thomas M.D. Date: 0 12/08/2023 Generated for Duane santana/Maryse/Pito on: 0 12/16/2024 09:03 AM EDT
--- OUTSIDE RECORDS SUMMARY | 2024-10-26 05:30 | XMS_ITS ---
Author Organization [facility] Address [address] [facility] [address] [facility] [address] [place] [id number] Care Team Providers Care Supervisor Modern Languages Name Role Phone Griffin Ruiz Primary Care Provider [phone] Jesus Goode Unavailable [phone] Allergies No Known Allergies REASON FOR VISIT checkup with fasting labs and Annual Wellness Visit Immunizations Vaccine Route Administration Date Status Comme nts Prevnar (PCV20) Unknown 10/26/2024 Pending Encounters Encounter Location Date Provider Diagnosis [place] [address] [facility] [address] [facility] [address] [place] [id number] 10/26/2024 Jesus Thomas Adult general medica l examination Z00.00 Assessments Encounter Date Diagnosis (ICD Code) Assessment Notes Treatment Notes Treatment Clinical Notes Section Notes 10/26/2024 Adult general medical examination (ICD-10 - Z00.00) Patient instructed to return to office Annually for Annual Wellness Visits to include annual screenings of Pain assessment, Functional Ability assessment, Cognitive Ability assessment, Fall Risk assessment, Depression screening and Bladder control screening. Plan Of Treatment Treatment Notes Assessment Notes Adult general medical examination Patien t instructed to return to office Annually for Annual Wellness Visits to include annual screenings of Pain assessment, Functional Ability assessment, Cognitive Ability assessment, Fall Risk assessment, Depression screening and Bladder control screening. Pending Test Test Name Order Date colonoscopy 10/26/2024 CBC Venipuncture (in house) 10/26/2024 P-Comprehensive Metabolic Panel (CMP) P-Lipid Panel 10/26/2024 P-PSA 10/26/2024 Next Appt Details Follow Up: As directed by , Reason: Provider Name:Jesus Galvananncindy aisha, 12/26/2024 10:30:00 AM, [address], [address], [place], [id number], Progress Notes * ALFREDO GORDILLODOB: (74 yo M)Acc No.[id number]:10/26/2024 Annual Wellness Visit Patient: ALFREDO CERRATO Provider: Jesus Thomas M.D. :1950 A ge:74 Y S ex:Male Date:10/26/2024 Address:[facility] [address], [id number] Pcp:Griffin Ruiz Subjective: * Chief Complaints: * 1 . checkup with fasting labs and Annual Wellness Visit. * HPI: H PI: Patient is here today for a check up with fasting labs and an A nnual Wellness Visit. * ROS: O PTHALMOLOGY: Negative for d enies issues with vision. * Medical History: M igraine headaches, Normal [...] , Frequency: ,Years: , Determination:beer, occasional. * Allergies: N .K.D.A. Objective: * Vitals: * Physical Examination: G ENERAL: Pain Assessment: P ain level: , on a scale of 0 to 10 (10 being extreme pain). F unctional Status Assessment: P atient response to how often physical health interferes with daiy activities: Able to perform ADLs-including meal preparation, grocery shopping, housework, laundry, taking medications, or handling finances. Cognitive Status: Alert and oriented. Ambulation Status: Fully ambulatory. F all Risk Assessment: I ndependant in ambulation, adequate lighting in home. Patient has NOT fallen or had trouble walking within the past 12 months. D epression Screening: D enies depressed mood or anxiety. Describes emotional health as:. B ladder Control Screening: D enies problems.? Assessment: * Assessment: 1. A dult general medical examination - Z00.00 (Primary) Plan: * Treatment: * Immunizations: Prevnar (PCV20) : 0.5 mL (Pending) * Imaging: * I maging: colonoscopy * Labs: * L ab: P-PSA L ab: P-Lipid Panel L ab: P-Comprehensive Metabolic Panel (CMP) L ab: CBC Venipuncture (in house) * Procedure Codes: G 0438 ANNUAL WELLNES VST; PERSNL PPS INIT, Modifiers: 25 , G2211 Complex e/m visit add on, 1090F PRES/ABSN URINE INCON ASSESS, 3288F FALL RISK ASSESSMENT DOCD, 1170F FXNL STATUS ASSESSED, 1126F AMNT PAIN NOTED NONE PRSNT, 1159F MED LIST DOCD IN RCRD, 1003F LEVEL OF ACTIVITY ASSESS, 1036F TOBACCO NON-USER, 3017F COLORECTAL CA SCREEN DOC REV, [id number] CBC WITH AUTO DIFF * Preventive Medicine: Counseling: E motional health: E ncouraged to try connecting with family or friends to boost mood. B ladder control: D iscussed ways to control/manage leakage of urine. Exercise: A dvised to start, increase or maintain level of exercise/physical activity. I njury prevention: D iscussed fall prevention. Discussed need for cane/walker. Potential trip hazards discussed. Immunizations: T etanus u p to date. P neumococcal r ecommended. I nfluenza r ecommended seasonally. Screening / Special Tests: C olonoscopy R ecent history: 10/05/2016, Dr. Gill, polyps, hemorrhoids, repeat 5 years, recommended. P SA o rdered. * Follow Up: A s directed by * Images: Billing Information: * Visit Code: * Procedure Codes: G0438 ANNUAL WELLNES VST; PERSNL PPS INIT. Modifiers: 25 G2211 Complex e/m visit add on. 1090F PRES/ABSN URINE INCON ASSESS. 3288F FALL RISK ASSESSMENT DOCD. 1170F FXNL STATUS ASSESSED. 1126F AMNT PAIN NOTED NONE PRSNT. 1159F MED LIST DOCD IN RCRD. 1003F LEVEL OF ACTIVITY ASSESS. 1036F TOBACCO NON-USER. 3017F COLORECTAL CA SCREEN DOC REV. [id number] CBC WITH AUTO DIFF. * Electronic signature of Jesus Thomas MD on 12/16/2024 at 09:03 AM EDT Sign off status: Pending * Provider: Jesus Thomas M.D. Date: 0 10/26/2024 Generated for Duane santana/Maryse/Mario Albertoitting on: 0 12/16/2024 09:03 AM EDT History and Physical Notes * HPI (History of Present Illness) Category Sub-Category Detail Notes Category Not es HPI Patient is here today for a [facility] k up with fasting labs and an Annual Wellness Visit Physical Examination Category Sub-Category Detail Notes Section Note s GENERAL Pain Assessment: Pain level: , o n a scale of 0 to 10 (10 being extreme pain) Functional Status Assessment: Patient response to how often physical health interferes with daiy activities: Able to perform ADLs-including meal preparation, grocery shopping, housework, laundry, taking medications, or handling finances. Cognitive Status: Alert and oriented. Ambulation Status: Fully ambulatory Fall Risk Assessment: Independant in amb ulation, adequate lighting in home. Patient has NOT fallen or had trouble walking within the past 12 months Depression Screening: Denies depressed m ood or anxiety. Describes emotional health as: Bladder Control Screening: Denies proble ms
--- OUTSIDE RECORDS SUMMARY | 2024-12-04 14:00 | XMS_ITS | Encounter Summary ---
Author Organization [employer] ([place], [place], [place], [place]) Address [address] [place] [address] Care Team Providers Care Retail Beauty Specialist Name Role Phone Martell Thomas MD Primary Care Provider +1- [phone] Reason for Visit * Reason Comments Follow-up Memory Encounter Details Date Type Department Care Team (Latest Contact Info) Description 12/04/2024 2:00 PM EDT Office Visit [facility] Neurology - [address] [employer] [address] [address] Fouzia Peralta APRN [address] [facility] [address] [place] [address] Neurodegenerative disorder (HCC) (Primary Dx); Memory loss; Alcohol abuse, daily use; Insomnia, unspecified type; Light headed; Hallucinations Social History Tobacco Use Types Packs/Day Years Used Date Smoking Tobacco: Never Smokeless Tobacco: Never Alcohol Use Standard Drinks/Week Comments Yes 0 (1 standard drink = 0.6 oz pur e alcohol) 7 drinks Employment Answer Date Recorded Help finding and keeping a job Not on file 0 12/10/2023 Family and Community Support Answer Jose e Recorded Help with Day to Day Activities Not on file 12/10/2023 Feeling Lonely or Isolated Not on file 12/09 Educational Attainment Answer Date Jj rded Speak language other than [place] Citizen at home Not on file 12/10/2023 Want help with school or training Not on file 12/10/2023 Substance Use Answer Date Recorded Used prescription meds for non-medical reasons N ot on file 12/10/2023 Used illegal drugs past 12 months Not on file 12/10/2023 Sex and Gender Information Value Date Recorded Sex Assigned at Not on file Legal Sex Male 1:14 PM CDT Gender Identity Not on file Sexual Orientation Not on file documented as of this encounter Last Filed Vital Signs Vital Sign Reading Time Taken Comments Blood Pressure 140/80 12/04/2024 2:00 PM EDT Pulse 65 12/04/2024 2:00 PM EDT Temperature - - Respiratory Rate - - Oxygen Saturation 97% 12/04/2024 2:00 PM EDT Inhaled Oxygen Concentration - - Weight 88 kg (194 lb) 12/04/2024 2:00 PM EDT Height 180.3 cm (5' 11 ) 12/04/2024 2:00 PM EDT Body Mass Index 27.06 12/04/2024 2:00 PM EDT documented in this encounter Progress Notes * Fouzia Peralta, CHRIS - 12/04/2024 2:00 PM EDT [facility] [address] [place] [address], [place] [address] Moe Gordillo is a 74 y.o. male with the following history as recorded in [facility]: Chief Complaint Patient presents with Follow-up Memory HPI: 74-year-old male presented at the request of his primary care Dr. Martell Thomas for concerns of memory issues. Patient has a known medical history of a CABG 3 years ago and apparently he has been having some memory issues along with confusion and hallucinations since that time. Patient is accompanied today by his . Prior to his CABG 3 years ago at the [facility] she says she had no concerns about his memory or cognitive function. He was having some hallucinations and confusion in the hospital but they were told it was likely due to medications and hospital psychosis. They saw Dr. Allison, neurologist who told him that it would just get better over time. Atone point they thought it was getting worse however today it has not worsened but it does still occur. Describes it as critters running across the floor. He says the dog also sees it. The tells me no one else sees anything. Believe this is gotten better with the addition of some Seroquel during the day and at night for him to get better sleep is no longer seeing people. He does not get agitated or afraid or anxious he just sees people in the house. He continues to take Seroquel 50 mg at bedtime and helps him rest, he is also taken 25 during the day and this has helped with some of his anxiety. He continues to drink 1 beer a day per his report. He and his both adamantly deny any excessive alcohol intake. 01/2024-[facility] exam 17 out of 30 decreased ability in visual-spatial and executive as well as delayedrecall and language. 06/2024-[facility] exam 20 Patient apparently still drives around his small town without getting lost. 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 He does have day-to-day memory issues. He and his originally denied any anxiety, depression, underlying psychiatric disorder. At some point he was started on donepezil 5 mg but was having vivid dreams and therefore that wasstopped. I revisited this at his last appointment and he has been tolerating that well since have seen him last. Continues on 10 mg at bedtime. The patient and tell me they got a puppy montanez retriever for [place] and the patient has been caring for her daily. His believes this has helped tremendously with his mood. She does say that he is pretty good still with names occasionally he struggles with getting words out or his thoughts. Medications: Current Outpatient Medications Medication Sig Dispense Refill aspirin 81 MG EC tablet Take 1 tablet (81 mg total) by mouth daily. cholecalciferol, vitamin D3, 2,000 unit tab Take 1 tablet (2,000 Units total) by mouth daily. donepeziL (ARICEPT ODT) 10 MG disintegrating tablet Take 1 tablet (10 mg total) by mouth nightly. 30 tablet 5 QUEtiapine (SEROquel) 25 MG tablet TAKE 1 TABLET BY MOUTH DAILY 30 tablet 0 QUEtiapine (SEROquel) 25 MG tablet Take 1 tablet daily. 30 tablet 5 QUEtiapine (SEROquel) 50 MG tablet Take 1 tablet (50 mg total) by mouth nightly. 30 tablet 5 ranolazine (RANEXA) 1,000 mg SR tablet Take 1 tablet (1,000 mg total) by mouth 2 (two) times daily. rosuvastatin (CRESTOR) 20 MG tablet Take 1 tablet (20 mg total) by mouth nightly. thiamine 100 MG tablet Take 1 tablet (100 mg total) by mouth daily. 30 tablet 5 No current facility-administered medications for this visit. Allergies: Beta-Blockers (Beta-Adrenergic Blocking Agts) Past Medical History: Past Medical History: Diagnosis Date Hearing loss Past Surgical History: Past Surgical History: Procedure Laterality Date CARDIAC SURGERY Family History: Family History Problem Relation Name Age of Onset Cancer Mother Cancer Father Social History: Social History Tobacco Use Smoking status: Never Smokeless tobacco: Never Substance Use Topics Alcohol use: Yes Comment: 7 drinks ROS: Review of Systems Psychiatric/Behavioral: Positive for memory loss. The patient is nervous/anxious and has insomnia. All other systems reviewed and are negative. The patient's medical history, surgical history, and social history were reviewed and updated as appropriate. Objective: Vital Signs: Vitals: 12/04/24 1400 BP: (!) 140/80 Pulse: 65 SpO2: 97% Weight: 88 kg (194 lb) Height: 1.803 m (5' 11 ) BMI: Body mass index is 27.06 kg/m??. Mental Status: Alert. General Appearance: Cooperative. Not in acute distress. Build & Nutrition - Well nourished. HEENT: Eye Note: Pupils equal, reactive to light and to accommodation directly and consensually Peripheral Vascular: Upper Extremity: Inspection - Bilateral - Normal. Neurologic Mental Status: Speech - Normal. Cranial Nerves: III Oculomotor: Pupillary constriction - Bilateral - Normal. Note: no ptosis, no Dulce Maria's sign, no Kadeem Clement pupil VII Facial: Normal and symmetric facial muscles. Eye Movements: PERRL. EOMI. Sensory: Intact to pinprick in all 4 extremities. Reflexes: 2+ throughout. Musculoskeletal: Motor: Tone: Normal. Bulk: Normal. Strength: 5/5 bilaterally in the upper and lower extremities. Results: 11/2023-CT head shows no acute intracranial abnormality, mild atrophy 01/12/2024- [facility] 11/2023-bilateral carotid duplex performed at [facility] showed less than 50% bilateral stenosis. Bilateral patent vertebral arteries with antegrade flow 01/2024-vitamin B1 199.3, hemoglobin 15.8, hematocrit 47.9, platelets 266, RPR nonreactive, TSH 1.570, vitamin D42.0, vitamin B12 525, folate 14.6, sodium 142, potassium 4.5, BUN 13, creatinine 0.90,AST 21, ALT 29 01/2024-neurocognitive testing performed by Mayte Banuelos, [place] shows an underlying neurodegenerativecondition, mood, psychosis, and sleep dysregulation are likely contributing to his memory issues 01/2024-MRI brain without shows some advanced small vessel disease-patient did bring in the disc and I was able to view those images, mild age-appropriate atrophy, no signs of amyloid 06/2024-[facility] Assessment: ICD-10-CM ICD-9-CM 1. Neurodegenerative disorder (HCC) G31.9 331.9 2. Memory loss R41.3 780.93 donepeziL (ARICEPT ODT) 10 MG disintegrating tablet 3. Alcohol abuse, daily use F10.10 305.01 thiamine 100 MG tablet 4. Insomnia, unspecified type G47.00 780.52 QUEtiapine (SEROquel) 50 MG tablet 5. Light headed R42 780.4 6. Hallucinations R44.3 780.1 QUEtiapine (SEROquel) 50 MG tablet QUEtiapine (SEROquel) 25 MG tablet Plan: Moe was seen today for follow-up. Diagnoses and all orders for this visit: Neurodegenerative disorder (HCC) Memory loss - donepeziL (ARICEPT ODT) 10 MG disintegrating tablet; Take 1 tablet (10 mg total) by mouth nightly. Alcohol abuse, daily use - thiamine 100 MG tablet; Take 1 tablet (100 mg total) by mouth daily. Insomnia, unspecified type - QUEtiapine (SEROquel) 50 MG tablet; Take 1 tablet (50 mg total) by mouth nightly. Light headed Hallucinations - QUEtiapine (SEROquel) 50 MG tablet; Take 1 tablet (50 mg total) by mouth nightly. - QUEtiapine (SEROquel) 25 MG tablet; Take 1 tablet daily. Discussion: 74-year-old male with known hyperlipidemia, coronary artery disease with a CABG in 2020, and daily alcohol use of 1-2 beers a day. Patient does have mild to moderate neurocognitive degeneration and has been taking donepezil 10 mg nightly and seems to be tolerating that well. His original [facility] exam in January 2024 was 17/30, updated June 2024 was 20/30. Prior to his surgery she tells me he was cognitively intact. Was previously seeing people in their house throughout the day and night. That apparently seems to have resolved. However he continues to say critters running across the floor. He was originally placed on Seroquel at bedtime and during the day the bedtime has helped him get better sleep in the daytime has helped some with his anxiety. Still convinced that some of his visual hallucinations may be related to alcohol and I am going to go ahead and give him thiamine 100 mg to take daily. Althoughpatient and spouse deny excess alcohol. He also has cataracts bilaterally and will be getting thosefixed in the next few months. His formal cognitive testing did show evidence of an underlying neurodegenerative condition. There is concerned that mood specifically anxiety, and sleep dysregulation are contributing to his memory loss. Patient does admit to some anxiety. Will renew his 50 mg of Seroquel at bedtime and 20 5 in the morning as that has helped significantly with both his sleep and his agitation. Reviewed plan as above with patient and family. All questions have been answered at this time. I will plan to see him back in 6 months or sooner if needed. Will plan to check a Jackson exam at that timeand see if his cataract surgery has helped some with his visual hallucinations. Return in about 6 months (around 06/06/2025). Fouzia Peralta APRN 12/04/2024 documented in this encounter Plan of Treatment Upcoming Encounters Date Type Department Care Team (Late st Contact Info) Description 06/08/2025 2:00 PM EST Office Visit [facility] Neurology - [address] [place] [address] Fouzia Peralta, CHRIS [address] [place] [address] documented as of this encounter Visit Diagnoses Diagnosis Neurodegenerative disorder (HCC)- Primary Unspecified cerebral degeneration Memory loss Alcohol abuse, daily use Insomnia, unspecified type Light headed Dizziness and giddiness Hallucinations documented in this encounter Care Teams Retail Beauty Specialist Relationship Specialty Start Date End Date Martell Thomas MD [address] [address] PCP - General Family Medicine 12/10/23 documented as of this encounter
--- OUTSIDE RECORDS SUMMARY | 2024-12-16 09:04 | XMS_ITS | Clinical Summary ---
Author Organization [facility] Address [address] [place] [address] Care Team Providers Care Overlock Hemmer Name Role Phone PatrickannMartell dockery Primary Care Provider Dallas Montoya MD Unavailable [phone] Allergies No known active allergies Medications rosuvastatin (Crestor) 20 MG tablet Take 1 tablet (20 mg total) by mouth 1 (one) time each day. 30 tablet 3 12/03/2020 Active aspirin 81 MG EC tablet Take 1 tablet (81 mg total) by mouth 1 (one) time each day. 30 tablet 3 12/03/2020 Active amiodarone (Pacerone) 200 MG tablet Take 1 tablet (200 mg total) by mouth 1 (one) time each day for 30 doses. 30 tablet 12/06/2020 Active docusate sodium 100 MG capsule Take 100 mg by mouth 2 (two) times a day if needed for constipatio n. 60 capsule 12/03/2020 Active furosemide (Lasix) 40 MG tablet Take 1 tablet (40 mg total) by mouth 1 (one) time each day for 3 days. 3 tablet 12/04/2020 Active metoprolol tartrate 37.5 MG tablet Take 37.5 mg by mouth 2 (two) times a day. 60 tablet 3 12/03/2020 Active Active Problems Problem Noted Date Diagnosed Date Overweight (BMI 25.0-29.9) 12/19/2020 Hyperlipidemia 12/17/2020 Blood loss anemia 11/26/2020 Seasonal allergic rhinitis due to pollen 021 Coronary artery disease invo lving [place] coronary artery of [place] heart with unstable angina pectoris 11/24/2020 Essential hypertension 11/24/2020 Resolved Problems Problem Noted Date Diagnosed Date Resolved Date Agitation 11/28/2020 12/03/2020 Overview (11/28/2020): Received 25 mg seroquel overnight Acute postoperative respiratory insufficiency 11/27/19 21 12/03/2020 Overview (11/28/2020): - Wean as able - Monitor ABGs - PO lasix Motion sickness 11/25/2020 12/17/2020 Overview (11/25/2020): Wears wrist bands for motion sickness. Unstable angina 11/24/2020 12/03/2020 Overview (11/26/2020): - CABG on 11/25 Migraine without aura 11/24/20202020 Immunizations Immunization Administration Dates Next Due Tdap 08/26/2018 Family History Medical History Relation Name Comments Colon cancer Father Ovarian cancer Mother Relation Name Status Comments Father Mother Social History Tobacco Use Types Packs/Day Years Used Date Smoking Tobacco: Never Smokeless Tobacco: Former Chew Quit: 11/24/1976 Alcohol Use Standard Drinks/Week Comments Yes 10 (1 standard drink = 0.6 oz pu re alcohol) Sex and Gender Information Value Date Recorded Sex Assigned at Male 11/25/2020 12:08 PM EDT Legal Sex Male 4:15 PM EDT Gender Identity Male 11/25/2020 12:08 PM EDT Sexual Orientation Straight 11/25/2020 12 :08 PM EDT Occupation Industry Job Start Date Job End Date retired Not on file Not on file Not on file Last Filed Vital Signs Vital Sign Reading Time Taken Comments Blood Pressure 112/62 12/19/2020 1:25 PM EDT Pulse 57 12/19/2020 1:25 PM EDT Temperature 36.7 C (98.1 F) 12/03/2020 11:18 AM EDT Respiratory Rate 16 12/03/2020 11:18 AM EDT Oxygen Saturation 97% 12/19/2020 1:25 PM EDT Inhaled Oxygen Concentration - - Weight 84.4 kg (186 lb) 12/19/2020 1:25 PM EDT Height 177.8 cm (5' 10 ) 12/19/2020 1:25 PM EDT Body Mass Index 26.69 12/19/2020 1:25 PM EDT Plan of Treatment Health Maintenance Due Date Last Done Comments [facility]-Depression Screening 1950 [facility]-/Child/Adol SDOH Screenings 1950 [facility]- SDOH Screenings 1968 [facility]-Adult SDOH Screenings 1968 CT Colonography 08/14/1995 Colonoscopy 08/14/1995 FIT-DNA 08/14/1995 FIT 08/14/1995 FOBT 08/14/1995 Sigmoidoscopy 08/14/1995 [facility]-Colorectal Cancer Screening 08/14/1995 [facility]-Pneumococcal Vaccine: 50 + Years (1 of 1 - PCV) 2000 [facility]-Zoster Vaccines (1 of 2) 2000 [id number] Vaccine (2 - 20 24-25 season) 2023 05/10/2021 [facility]-Influenza Vaccine (#1) 2024 [facility]-RSV Vaccine: 60+ Years o r (1 - 1-dose 75+ series) 2025 [facility]-DTaP,Tdap,and Td Vaccine s (2 - Td or Tdap) 08/26/2028 08/26/2018 HPV Vaccines Aged Out No longer eligi ble based on patient's age to complete this topic [facility]-HIB Vaccines Aged Out No longer e ligible based on patient's age to complete this topic [facility]-Hepatitis A Vaccines Aged Out No longer eligible based on patient's age to complete this topic [facility]-IPV Vaccines Aged Out No longer e ligible based on patient's age to complete this topic [facility]-Rotavirus Vaccines Aged Out No lo nger eligible based on patient's age to complete this topic Insurance MEDICARE ANTHEM ANTHEM Member Subscriber Plan / Payer (Ef fective 2018-Present) Name:Moe Gordillo Relation to Subscriber:Self Name:Moe Gordillo Payer ID:[id number] (NAIC) Type:Not on file Address: [address] Advance Directives * Full Code (Latest Code Status on File) Date Activated Date Inactivated Comments 11/24/2020 12:48 AM 12/03/2020 5:03 PM Question Answer Comments Patient has decision-making capacity? Yes Care Teams Overlock Hemmer Relationship Specialty Start Date End Date Martell Gauthier PCP - General 11/22/20 Dallas Daniels MD [address] [place] [address] Referring Physician Cardiology 11/22/20
--- OUTSIDE RECORDS SUMMARY | 2024-12-16 09:04 | XMS_ITS | Encounter Summary ---
Author Organization [employer] ([place], [place], [place], [place]) Address [address] [place] [address] Care Team Providers Care Early Childhood Name Role Phone Martell Thomas MD Primary Care Provider [phone]- [phone] Reason for Visit * Reason Comments Medication Refill Encounter Details Date Type Department Care Team (Late st Contact Info) Description 09/19/2024 Refill [facility] Neurology - [address] [facility] [address] [place] [address] Carlos Meyer MD [facility] [address] [place] [address] Hallucinations Social History Tobacco Use Types Packs/Day [...] Date Jj rded Speak language other than Tunisian at home Not on file 12/10/2023 Want [...] on file documented as of this encounter Plan of Treatment Upcoming Encounters Date Type Department Care Team (Late st Contact Info) Description 06/08/2025 2:00 PM EST Office Visit [facility] Neurology - [address] [facility] [address] [place] [address] Fouzia Peralta, CHRIS [address] [facility] [address] [place] [address] documented as of this encounter Visit Diagnoses Diagnosis Hallucinations documented in this encounter Care Teams Early Childhood Relationship Specialty Start Date End Date Martell Thomas MD [address] [place] [address] PCP - General Family Medicine 12/10/23 documented as of this encounter
--- OUTSIDE RECORDS SUMMARY | 2024-12-16 09:04 | XMS_ITS | Encounter Summary ---
Author Organization [employer] ([place], [place], [place], [place]) Address [address] [place] [address] Care Team Providers Care Lot Worker Name Role Phone Martell Thomas MD Primary Care Provider +1- [phone] Encounter Details Date Type Department Care Team (Latest Contact Info) Description 12/04/2024 Travel Social History Tobacco Use Types Packs/Day Years [...] Date Jj rded Speak language other than Brazilian at home Not on file 12/10/2023 Want [...] Description 06/08/2025 2:00 PM EST Office Visit [facility] [address] [facility] [address] [place] [address] Fouzia Peralta, SUPERVISOR AGENCY APPOINTMENTS [address] [address] documented as of this encounter Visit Diagnoses Not on filedocumented in this encounter Care Teams Lot Worker Relationship Specialty Start Date End Date Martell Thomas MD [address] [place] [address] PCP - General Family Medicine 12/10/23 documented as of this encounter
--- OUTSIDE RECORDS SUMMARY | 2024-12-16 09:04 | XMS_ITS | Encounter Summary ---
Author Organization [employer] ([place], [place], [place], [place]) Address [address] [place] [address] Care Team Providers Care Sourcing Assistant Name Role Phone Martell Thomas MD Primary Care Provider [phone]- [phone] Reason for Referral * Consultation (Routine) - Closed Specialty Diagnoses / Procedures Referred By Contac t Referred To Contact Neurology Diagnoses Cognitive deficits Martell Thomas MD [address] [facility] [address] [place] [address] Phone: tel: fax: [facility] Neurology - [address] [place] [phone] Phone: tel: fax: Referral ID Status Reason Start Date Expiration Date V isits Requested Visits Authorized [id number] Closed Specialty Services Required 12/10/2023 12/09/2024 1 1 Encounter Details Date Type Department Care Team (Late st Contact Info) Description 12/10/2023 Outside Orders [facility] Neurology - [address] [place] [address] Fouzia Peralta APRN [address] [place] [address] [address] [place] [address] Cognitive deficits (Primary Dx) Social History Tobacco Use Types Packs/Day Years Used Date Smoking Tobacco: Never Assessed Employment Answer Date Recorded Help finding and keeping a job Not on file 0 12/10/2023 Family and Community Support Answer Jose e Recorded Help with Day to Day Activities Not on file 12/10/2023 Feeling Lonely or Isolated Not on file 12/09 Educational Attainment Answer Date Jj rded Speak language other than Czech at home Not on file 12/10/2023 Want [...] Description 06/08/2025 2:00 PM EST Office Visit [facility] Neurology - [address] [place] [address] Fouzia Peralta APRN [address] [place] [address] Scheduled Referrals Name Type Priority Associated Diagnoses Order Schedule Ambulatory referral to Neurology Outpatient Referral Routine Cognitive deficits Ordered: 12/10/2023 documented as of this encounter Visit Diagnoses Diagnosis Cognitive deficits- Primary Unspecified persistent mental disorders due to conditions classified elsewhere documented in this encounter Care Teams Sourcing Assistant Relationship Specialty Start Date End Date Martell Thomas MD [address] [id number] PCP - General Family Medicine 12/10/23 documented as of this encounter
--- OUTSIDE RECORDS SUMMARY | 2024-12-16 09:05 | XMS_ITS | Encounter Summary ---
Author Organization [employer] ([place], [place], [place], [place]) Address [address] [place] [address] Care Team Providers Care Ditching Machine Operating Engineer Name Role Phone Martell Thomas MD Primary Care Provider +1- [phone] Reason for Visit * Reason Onset Date Comments Medication Refill 12/06/2024 Encounter Details Date Type Department Care Team ([facility] Contact Info) Description 12/06/2024 Refill [facility] Neurology - [address] [email or web address] [address] [place] [address] Love Almonte CMA Social History Tobacco Use Types Packs/Day Years [...] Date Jj rded Speak language other than Norwegian at home Not on file 12/10/2023 Want [...] Upcoming Encounters Date Type Department Care Team ([facility] Contact Info) Description 06/08/2025 2:00 PM EST Office Visit [facility] Neurology - [address] [address] Fouzia Peralta, CONTINUOUS IMPROVEMENT FACILITATOR [address] [address] documented as of this encounter Visit Diagnoses Not on filedocumented in this encounter Care Teams Ditching Machine Operating Engineer Relationship Specialty Start Date End Date Martell Thomas MD [address] [place] [address] PCP - General Family Medicine 12/10/23 documented as of this encounter
--- OUTSIDE RECORDS SUMMARY | 2024-12-16 09:05 | XMS_ITS | Encounter Summary ---
Author Organization [employer] ([place], [place], [place], [place]) Address [address] [place] [address] Care Team Providers Care Commercial Construction Superintendent Name Role Phone Martell Thomas MD Primary Care Provider +1- [phone] Reason for Visit * Reason Onset Date Comments Medication Refill 12/07/2024 Encounter Details Date Type Department Care Team ([facility] Contact Info) Description 12/07/2024 Refill [facility] Neurology - [address] [facility] [address] [place] [address] Love Almonte CMA Social History [...] Date Jj rded Speak language other than Bolivian at home Not on file 12/10/2023 Want [...] Upcoming Encounters Date Type Department Care Team ([facility] Contact Info) Description 06/08/2025 2:00 PM EST Office Visit [facility] Neurology - [address] [address] Fouzia Peralta, TOBACCO GRADER [address] [address] documented as of this encounter Visit Diagnoses Not on filedocumented in this encounter Care Teams Commercial Construction Superintendent Relationship Specialty Start Date End Date Martell Thomas MD [address] [place] [address] PCP - General Family Medicine 12/10/23 documented as of this encounter
--- OUTSIDE RECORDS SUMMARY | 2024-12-16 09:05 | XMS_ITS | Encounter Summary ---
Author Organization [employer] ([place], [place], [place], [place]) Address [address] [place] [address] Care Team Providers Care Fruit Raiser Name Role Phone Martell Thomas MD Primary Care Provider +1- [phone] Reason for Visit * Reason Onset Date Comments Medication Refill 12/06/2024 Encounter Details Date Type Department Care Team (Late st Contact Info) Description 12/06/2024 Refill [facility] Neurology - [address] [facility] [address] [place] [address] Love Almonte CMA Memory loss Social History Tobacco Use Types Packs/Day Years [...] Date Jj rded Speak language other than Sammarinese at home Not on file 12/10/2023 Want [...] Description 06/08/2025 2:00 PM EST Office Visit [facility] [address] [address] Fouzia Peralta, ORDER PROCESSOR 10[address] [facility] [address] [place] [address] documented as of this encounter Visit Diagnoses Diagnosis Memory loss documented in this encounter Care Teams Fruit Raiser Relationship Specialty Start Date End Date Martell Thomas MD [address] [place] [address] PCP - General Family Medicine 12/10/23 documented as of this encounter
--- OUTSIDE RECORDS SUMMARY | 2024-12-16 09:05 | XMS_ITS | Patient Health Record ---
Author Organization [facility] Address [address] [place] [id number] Care Team Providers Care Printed Circuit Board Panels Plater Name Role Phone Griffin Ruiz Primary Care Provider Jesus Thomas Unavailable [phone] Allergies No Known Allergies Reason For Referral No Information Medications Medication SIG (Take, Route, Frequency, Duration) [...] once a day; Duration: 30 day(s) Active Aspir-Low 81 MG 1 tab(s) orally once a day; Duration: 30 day(s) Active Docusate Sodium 100 MG 1 cap(s) orally o nce daily Not-Taking ALPRAZolam 0.5 MG 1 tab(s) orally as directed 01/06/2022 Not-Taking Anusol-HC 25 MG 1 suppository Rectal Once a day 12/09/2022 Not-Taking Anusol-HC 2.5 % 1 application Externally Twice a day 12/09/2022 Not-Takin g Amiodarone HCl 200 MG 1 tab(s) orally on ce a day; Duration: 30 day(s) Not-Taking Nadolol 20 MG 1/2 tab orally once a day Not-Taking Immunizations Vaccine Route Administration Date Status Comme nts Tetanus Tdap-Adacel (over 7yrs) IM Intramuscular 08/26/2018 Administered Tetanus Tdap-Adacel (over 7yrs) Unknown 01/23/2024 Administered Prevnar (PCV20) Unknown 10/26/2024 Pending Problems Problem Type SNOMED Code ICD Code Onset Dates Problem Status W/U Status Risk Notes Problem Coronary arteriosclerosis (63009159) ASCVD (arteriosclerotic cardiovascular disease) (I25.10) Active confirmed Problem Mixed hyperlipidemia (926619374) Mixed hyperlipidemia (E78.2) Active confirmed Problem Sleep disorder (29481047) Sleep disorder (G47.9) Active confirmed Problem Cardiovascular disease (64411401) Cardiovascular disease (I25.10) Active confirmed Problem Migraine variant with headache (disorder) (263743442) Migraine headache (G43.909) Active confirmed Problem Hallucinations (6532447) Hallucinations (R44.3) Active confirmed Problem Dyslipidemia (701050535) Dyslipidemia (E78.5) Active confirmed Problem Impaired cognition (finding) (531921148) Cognitive deficits (R41.89) Active confirmed Plan Of Treatment Pending Test Test Name Order Date sleep study 11/11/2023 Next Appt Details Provider Name:Jesus Almazan, 12/26/2024 10:30:00 AM, [address], [place], [place], [id number], Insurance Providers Payer Name Payer Address Payer Phone Subscriber Number Group Number Insured Name Patient Relationship to Insured Coverage Start Date Coverage End Date [employer] [address] [place] [address] [id number] ALFREDO GORDILLO Self - patient is the insured MEDICARE PART B [address] [address] [place] [id number] [phone] [id number] ALFREDO GORDILLO Self - patient is the insured [employer] [address] [place] [address] [phone] [id number] ALFREDO GORDILLO Self - patient is the insured Medical (General) History Medical History History ICD Code migraine headaches normal cardiolyte stress test - 09/2020 Surgical History Surgery Date(Month/Year) appendectomy C-scope 2017 CABG x 2/ Dr. Peres/ 11/25/2020 Hospitalization History Reason Date(Month/Year) heart surgery 11/25/2020
--- OUTSIDE RECORDS SUMMARY | 2024-12-16 09:05 | XMS_ITS | Referral Summary ---
Author Organization [employer] ([place], [place], [place], [place]) Address [address] [place] [address] Care Team Providers Care Investigative Agent Name Role Phone Martell Thomas MD Primary Care Provider +1- [phone] Encounters Date Type Department Care Team Description 12/07/2024 Refill [facility] Neurology - [address] [place] [address] [place] [address] Love Almonte CMA 12/06/2024 Refill [facility] Neurology - [address] [place] [address] [place] [address] Love Almonte CMA 12/06/2024 Refill [facility] Neurology - [address] [place] [address] [place] [address] Love Almonte CMA Memory loss 12/04/2024 Travel 12/04/2024 2:00 PM EDT Office Visit [facility] Neurology - [address] [place] [address] [place] [address] Fozuia Peralta APRN Neurodegenerative disorder (HCC) (Primary Dx); Memory loss; Alcohol abuse, daily use; Insomnia, unspecified type; Light headed; Hallucinations 09/22/2024 Orders Only [facility] Neurology - [address] [place] [address] [place] [address] Fouzia Peralta APRN Hallucinations (Primary Dx) 09/19/2024 Refill [facility] Neurology - [address] [place] [address] [place] [address] Carlos Meyer MD Hallucinations from Last 3 Months Allergies Active Allergy Reactions Criticality Noted Date Comments Beta-Blockers (Beta-Adrenerg ic Blocking Agts) High 02/24/2023 hallciunations Medications * This document contains information received from the source organization and may not represent a complete record from that organization. rosuvastatin (CRESTOR) 20 MG tablet Take 1 tablet (20 mg total) by mouth nightly. 12/31/19 24 Active cholecalciferol, vitamin D3, 2,000 unit tab Take 1 tablet (2,000 Units total) by mouth daily. Active aspirin 81 MG EC tablet Take 1 tablet (81 mg total) by mouth daily. Active ranolazine (RANEXA) 1,000 mg SR tablet Take 1 tablet (1,000 mg total) by mouth 2 (two) times daily. 05/26/19 25 Active QUEtiapine (SEROquel) 25 MG tabletIndications: Hallucinations TAKE 1 TABLET BY MOUTH DAILY 30 tablet 10/31/19 25 Active thiamine 100 MG tabletIndications: Alcohol abuse, daily use Take 1 tablet (100 mg total) by mouth daily. 30 tablet 5 12/05/19 25 026 Active QUEtiapine (SEROquel) 50 MG tabletIndications: Insomnia, unspecified type,Hallucination s Take 1 tablet (50 mg total) by mouth nightly. 30 tablet 5 12/05/19 25 Active QUEtiapine (SEROquel) 25 MG tabletIndications: Hallucinations Take 1 tablet daily. 30 tablet 5 12/05/19 25 Active donepeziL (ARICEPT) 10 MG tablet Take 1 tablet (10 mg total) by mouth nightly. 90 tablet 12/08/19 25 Active donepeziL (ARICEPT ODT) 10 MG disintegrating tabletIndications: Memory loss Take 1 tablet (10 mg total) by mouth nightly. 30 tablet 5 06/13/19 25 025 Discontinued(Re order) QUEtiapine (SEROquel) 50 MG tabletIndications: Hallucinations,Ins omnia, unspecified type Take 1 tablet (50 mg total) by mouth nightly. 30 tablet 5 06/13/19 25 025 Discontinued(Re order) QUEtiapine (SEROquel) 25 MG tabletIndications: Hallucinations Take 1 tablet daily. 90 tablet 09/23/19 25 025 Discontinued(Re order) donepeziL (ARICEPT ODT) 10 MG disintegrating tabletIndications: Memory loss Take 1 tablet (10 mg total) by mouth nightly. 30 tablet 5 12/05/19 25 025 Discontinued(Re order) donepeziL (ARICEPT ODT) 10 MG disintegrating tabletIndications: Memory loss Take 1 tablet (10 mg total) by mouth nightly. 60 tablet 5 12/07/19 25 025 Discontinued donepeziL (ARICEPT) 10 MG tablet Take 1 tablet (10 mg total) by mouth nightly. 025 Discontinued(Re order) Active Problems Problem Noted Date Diagnosed Date Neurodegenerative disorder 06/12/2024 Memory loss 01/12/2024 Hallucinations 01/12/2024 Alcohol abuse, daily use 01/12/2024 Social History Tobacco Use Types Packs/Day Years Used Date Smoking Tobacco: Never Smokeless Tobacco: Never Tobacco Cessation:Counseling Given: Not Answered Alcohol Use Standard Drinks/Week Comments Yes 0 [...] on file Sexual Orientation Not on file Last Filed Vital Signs [...] Mass Index 27.06 12/04/2024 2:00 PM EDT Plan of Treatment Upcoming Encounters Date Type Department Care Team (Late st Contact Info) Description 06/08/2025 2:00 PM EST Office Visit [facility] Neurology - [address] [email or web address] [place] [place] [address] Fouzia Peralta, CONE WINDER [address] [facility] [address] [place] [address] Insurance BLUE CROSS/BLUE SHIELD MEDICARE PART A B Care Teams Investigative Agent Relationship Specialty Start Date End Date Martell Thomas MD [address] [place] [address] PCP - General Family Medicine 12/10/23
--- OUTSIDE RECORDS SUMMARY | 2024-12-16 09:05 | XMS_ITS | Clinical Summary ---
Author Organization [employer] ([place], [place], [place], [place]) Address [address] [place] [address] Care Team Providers Care Quality Rep Name Role Phone Martell Thomas MD Primary Care Provider +1- [phone] Allergies Active Allergy Reactions Criticality Noted Date [...] Hallucinations 01/12/2024 Alcohol abuse, daily use 01/12/2024 Encounters Date Type Department Care Team Description 12/07/2024 [facility] Neurology - [address] [place] [address] [place] [address] Love Almonte CMA 12/06/2024 [facility] Neurology - [address] [place] [address] [place] [address] Love Almonte CMA 12/06/2024 [facility] Neurology - [address] [place] [address] [place] [address] Love Almonte CMA Memory loss 12/04/2024 2:00 PM EDT Office Visit [facility] Neurology - [address] [place] [place] [address] Fouzia Peralta APRN Neurodegenerative disorder (HCC) (Primary Dx); Memory loss; Alcohol abuse, daily use; Insomnia, unspecified type; Light headed; Hallucinations 12/04/2024 Travel 09/22/2024 Orders Only [facility] Neurology - [address] [place] [address] [place] [address] Fouzia Peralta APRN Hallucinations (Primary Dx) 09/19/2024 Refill [facility] Neurology - [address] [place] [address] [place] [address] Carlos Meyer MD Hallucinations from Last 3 Months Family History Medical History Relation Name Comments Cancer Father Cancer Mother Relation Name Status Comments Father Mother [...] Date Jj rded Speak language other than Belarusian at home Not on file 12/10/2023 Want [...] Description 06/08/2025 2:00 PM EST Office Visit [facility] Neurology - [address] [place] [address] [place] [address] Fouzia Peralta, CHRIS [address] [place] [address] [place] [address] Health Maintenance Due Date Last Done Comments CT Colonography 1950 Colonoscopy 1950 Colorectal Cancer Screening 1950 FOBT/FIT 1950 Fit-DNA (Cologuard) 1950 Sigmoidoscopy 1950 Hepatitis C Screening 1968 Pneumococcal 50+ years (1 of 2 - PCV) 1969 Shingles Vaccine (Zoster) (1 of 2) 2000 COVID-19 VACCINE (2 - season) 2023 Influenza Vaccine (#1) 2024 Tobacco Cessation Counseling and Screening (12+) 01/1101/12/2024 Respiratory Syncytial Virus (RSV) Adult or (1 - 1-dose 75+ series) 2025 DTAP/TDAP/TD VACCINES (2 - Td or Tdap) 08/26/2028 Falls Risk Screening Completed 12/04/2024 Insurance BLUE CROSS/BLUE SHIELD MEDICARE PART A B Care Teams Quality Rep Relationship Specialty Start Date End Date Martell Thomas MD [address] [place] [id number] PCP - General Family Medicine 12/10/23
[2024-12-16 09:51] LABS: Hematocrit 45.2 % (42.0-52.0); Hemoglobin 15.2 g/dL (14.1-18.0); Immature Granulocytes % 0.5 %; Mean Corpuscular HGB Conc 33.6 g/dL (31.8-35.4); Mean Corpuscular Hemoglobin 29.9 pg (27.0-31.2); Mean Corpuscular Volume 89.0 fl (80-94); Nucleated Red Blood Cells % 0 %; Platelet Count 247 K/mm3 (142-424); Red Blood Count 5.08 M/mm3 (4.60-6.20); Red Cell Distribution Width-SD 40.4 fL; White Blood Count 7.5 K/mm3 (4.8-10.8)
[2024-12-16 10:02] LABS: Alanine Aminotransferase 27 U/L (12-78); Albumin Level 4.3 g/dl (3.5-5.0); Alkaline Phosphatase 62 U/L (38-126); Anion Gap 12.2 mEq/L (5-15); Aspartate Amino Transferase 36 U/L (17-59); Bilirubin,Direct 0.0 mg/dl (0.0-0.4); Bilirubin,Indirect 1.0 mg/dL (0.0-0.9); Bilirubin,Total 1.0 mg/dl (0.2-1.3); Bilirubin,Unconjugated 1.2 mg/dL (0.0-1.1); Blood Urea Nitrogen 12 mg/dl (9-20); Calcium 8.8 mg/dl (8.4-10.2); Carbon Dioxide 29 mmol/L (22.0-30.0); Chloride 104 mmol/L (98-107); Cholesterol 156 mg/dl (140-200); Creatinine,Serum 1.00 mg/dl (0.66-1.25); Estimated Glomerular Filt Rate 73 ml/min (>60); GFR (African American) 88 ML/MIN (>60); Glucose 93 mg/dl (74-100); HDL Cholesterol 28 mg/dl (40-60); Magnesium 2.0 mg/dl (1.6-2.3); Potassium 4.2 mmoL/L (3.5-5.1); Sodium 141 mmol/L (136-145); Total Protein,Serum 7.1 g/dl (6.3-8.2); Triglycerides 156 mg/dl (30-150)
[2024-12-16 11:23] LABS: Thyroid Stimulating Hormone 1.84 uIU/mL (0.465-4.68)
[2024-12-16 11:28] LABS: Free T4 (Free Thyroxine) 0.94 ng/dl (0.78-2.19)
== END 2024-12-16 23:59 | disposition home or self-care (01) ==
PROVIDERS: PCP Family Medicine; Visit Provider Physician Assistant
DX: I25.10 Atherosclerotic heart disease of native coronary artery without angina pectoris (principal); E78.5 Hyperlipidemia, unspecified; I10 Essential (primary) hypertension
CPT/HCPCS: 36415; 80048; 80061; 80076; 83735; 84439; 84443; 85025